=== PATIENT | female | born 1945 | race Caucasian/White ===

== ENCOUNTER 2024-04-20 23:58 | Observation (INO) | payer MEDICARE, BC, SELFPAY ==
[2024-04-20 17:05] VITALS: BP 125/79
[2024-04-20 18:02] VITALS: BP 123/71
[2024-04-20 18:02] LABS: % Basophils 1.3 % (0-2); % Eosinophils 3.4 % (0-6); % Immature Granulocytes 0.3 % (0-0.5); % Lymphocytes 13.2 % (20.5-51.1); % Monocytes 7.2 % (1.7-9.3); % Neutrophils 74.6 % (42.2-75.2); Absolute Basophils 0.1 10^3/uL (0-0.2); Absolute Eosinophils 0.2 10^3/uL (0-0.7); Absolute Lymphocytes 0.8 10^3/uL (1.2-3.4); Absolute Monocytes 0.4 10^3/uL (0.1-0.6); Absolute Neutrophils 4.6 10^3/uL (1.4-6.5); Hemoglobin 11.9 g/dL (12.0-16.0); Mean Corpuscular Hgb 29.4 pg (27.0-31.0); Mean Platelet Volume 9.6 fL (7.4-10.4); Nucleated Red Blood Cells % 0 %; Platelet Count 184 10^3/uL (130-400); Red Blood Cell Count 4.05 10^6/uL (4.20-5.40); Red Cell Dist. Width 17.1 % (11.5-14.5); White Blood Cell Count 6.1 10^3/uL (4.8-10.8)
[2024-04-20 18:23] LABS: ALT (SGPT) < 10 U/L (0-35); AST (SGOT) 26 U/L (14-36); Alkaline Phosphatase 69 U/L (38-126); Blood Urea Nitrogen 26 mg/dl (7-17); Calcium 9.1 mg/dl (8.4-10.2); Carbon Dioxide 25 mmol/L (22-30); Chloride 97 mmol/L (98-107); Glucose 87 mg/dl (70-99); Potassium 4.5 mmol/L (3.5-5.1); Sodium 129 mmol/L (135-145); Total Bilirubin 0.8 mg/dl (0.2-1.3); Total Protein 6.3 g/dl (6.3-8.2); eGFR > 60.00
[2024-04-20 18:26] LABS: Troponin I < 0.012 ng/ml
--- NOTE | 2024-04-20 18:30 | ED.GENMED ---
History of Present Illness
General
Chief Complaint: Chest Pain
Source: patient
Exam Limitations: none
Time Seen by Provider: 04/20/24 17:58
Travel History
Have you had any contact with someone who has COVID-19?: No
Do you have any symptoms of coronavirus? Fever > 100 degrees, chills, cough, shortness of breath, sore throat, loss of taste or smell, muscle aches, or headache?: No
History of Present Illness
History of Present Illness:
This is a 78 year old female that comes in with c/o chest pain. States that she went to the med asst today to get clearance to have her Kidney stent changed. states that she had an ECG at 3:15pm and saw Dr. Edmond. States that she went out
to her car around 4pm and started with chest pain after seeing the med asst. States that the pain was in the center of his chest and on the left. States that it was a 8 and then went down to a 6/10. States that she called the med asst
office and was told to come here. States that she drove herself here. States the pain is dull know but she still feels something there. States that her Pacemaker was checked in the office and she has not had any atrial fib sine January. Denies any
fever, chills, SOB, abd pain, nausea, vomiting, diarrhea, headache, dizziness, urinary burning.
Past History
Past History
ED Past Medical History: Arrthythmia (afib on eliquis), Asthma, GERD, HTN, Hypothyroidism and Other (Back pain, sciatica, TIA, PNA, Sleep apnea, MVP, barretts esophagus, GI bleeding, Hiatal hernia, IBS, )
ED Past Surgical History: Cardiac (Pacemaker placement, Ablation), , Gynecological (hysterectomy), Orthopedic ( L4-L5 fusion and laminectomy, Aakash knee replacement, left shoulder rotator cuff and biceps repair, carpal tunnel, Elbow surgery,
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
Social History
Tobacco: Former smoker
Alcohol: Occasional
Drug: None
Personal:
Living: alone
Employment: Retired
Family History
Family History: Other
Review of Systems
Review of Systems
All Other Systems: ROS reviewed and negative except as documented in HPI and ROS
Constitutional: Reports no symptoms; Denies fever or chills
EENT: Reports no symptoms
Respiratory: Reports no symptoms; Denies cough or trouble breathing
Cardiac: Reports chest pain
ABD/GI: Reports no symptoms; Denies abdominal pain, nausea, vomiting or diarrhea
: Reports no symptoms; Denies dysuria, frequency or urgency
Musculoskeletal: Reports no symptoms
Skin: Reports no symptoms
Neurological: Reports no symptoms; Denies dizzy or headache
Psychiatric: Reports no symptoms
Phy Exam
General Physical Exam
General Presentation: no apparent distress
General age: appears stated age
General Skin: warm and dry
General Habitus: elderly
General Mental: alert
General Hydration: dry mucous membranes
ENT Exam
ENT Exam: TM's normal, pharynx normal and neck supple
Eye Exam
Eye Exam: EOMI
Cardiovascular Exam
Cardiovascular Exam: pacemaker
Pulmonary Exam
Pulmonary Exam: lungs clear, no respiratory distress, no rales, chest non tender, no crackles, no rhonchi, no wheezing and no cough
Gastrointestinal Exam
Gastrointestinal Exam: normal bowel sounds, non tender, soft, no organomegaly, no pulsatile mass and non distended
Musculoskeletal Exam
Musculoskeletal Exam: full ROM and edema (Nonpitting lower legs)
Skin Exam
Skin Exam: normal color, warm/dry, no rash and no petechia
Psychiatric Exam
Psychiatric Exam: normal mood/affect
Scores
Heart Score for Chest Pain Patients
STEMI patient?: No
History: Slightly or Non-Suspicious
ECG: Normal
Age: >/= 65 years
Risk Factors: 1 or 2 Risk Factors
Troponin: </= Normal Limit
Heart Score for Chest Pain Patients: 3
Heart Score Risk: 2.5% MACE over next 6 weeks
Course
Orders/Labs/Results
Orders:
Orders
04/20/24 17:06
EKG [Electrocardiogram (*1)] Stat
Reason for Study: Chest Pain
04/20/24 17:07
EKG- Treatment ONCE
04/20/24 17:58
Complete Blood Count/With Diff Urgent
Comprehensive Metabolic Panel Urgent
Troponin I Urgent
04/20/24 18:29
CR Chest - 2 Views Urgent
Comment:
Reason For Exam: chest pain
04/20/24 18:30
EKG- Treatment ONCE
04/20/24 18:33
Nitroglycerin Sublingual [Nitrostat (Sublingual)] 0.4 mg SL NOW STA
Pantoprazole [Protonix IV] 40 mg IV NOW STA
04/20/24 18:39
0.9% Sodium Chloride 500 ml [Nss] 500 ml IV BOLUS
04/20/24 20:55
Electrocardiogram (*1) Urgent
Reason for Study: Chest Pain
Other Reason for Exam: Repeat with Troponin
04/20/24 21:05
Troponin I Urgent
Abnormal Lab Results
04/20/24
17:58
RBC 4.05 L 10^6/uL
(4.20-5.40)
Hgb 11.9 L g/dL
(12.0-16.0)
Hct 34.0 L %
(37.0-47.0)
RDW 17.1 H %
(11.5-14.5)
Absolute Lymphs (auto) 0.8 L 10^3/uL
(1.2-3.4)
Lymphocytes % 13.2 L %
(20.5-51.1)
Sodium 129 L mmol/L
(135-145)
Chloride 97 L mmol/L
(98-107)
BUN 26 H mg/dl
(7-17)
04/20/24 17:58
04/20/24 17:58
H/H slightly low. hyponatremia (Sodium correction is 129) , Chloride slightly low. Dehydration. Troponin <0.012
second troponin <0.012
Vital Signs
Initial and Last Documented VS:
Initial Vital Signs
Temp Pulse Resp BP Pulse Ox
97.8 F 72 18 125/79 97
04/20/24 17:05 04/20/24 17:05 04/20/24 17:05 04/20/24 17:05 04/20/24 17:05
Last Documented Vital Signs
Temp Pulse Resp BP Pulse Ox
97.8 F 88 18 123/71 98
04/20/24 17:05 04/20/24 18:02 04/20/24 17:05 04/20/24 18:02 04/20/24 18:02
MDM/Problems Addressed
Differential Diagnosis Includes:
coronary syndrome, GERD
MDM/Problems Addressed:
This is a 78 year old female that comes in with c/o chest pain. States that she had seen the med asst, had her pacemaker checked and walked out to her car and stated with chest pain. Patient call the med asst office and was told to come
here. Patient drove herself here.
will check labs. chest x-ray and give Nitro to relieve pain.
Back into see patient. Explained that her both Troponin are normal and her chest X-ray is normal. Patient states that the nitro did take her pain away. Patient blood work also shows that she has hyponatremia. Will admit for further evaluation.
Hospitalist notified.
Chronic conditions affecting care:
cardiac disease
Acute Exacerbation and/or Progression of Chronic Illness:
cardiac disease
*Radiology
Radiology exam reviewed: radiology read reviewed (Chest- No acute cardiopulmonary process)
*Pulse Oximetry
Patient hypoxic: no
*EKG
Interpreted by ED Provider?: Yes
Heart Rate: 75
Rate: normal
Rhythm: av sequential
*Lithographic Retoucher Apprentice Interpretation
Rate: normal
Heart Rate: 70
Rhythm: av sequential
*Critical Care Note
Total Time (30-74mins, 75-104mins- exclusive of procedures): Not Applicable
ED Attending Note
-
Portions of this chart may have been created with voice recognition software.� Occasional wrong word or��sound alike� substitutions may have occurred due to the inherent limitations of voice recognition software.
Discharge Plan
Departure
Patient Disposition: Admit
Date of Disposition: 04/20/24
Time of Disposition: 22:38
Admit to: Telemetry
Presentation/result/management discussed w/ accepting MD/DO: Hospitalist
Patient with high blood pressure during this ER visit?: Yes
Condition: Good
Covid-19: Not Applicable
Discharge Problem:
Chest pain, Acute hyponatremia
Prescriptions:
No Action
atorvastatin 10 mg Tablet
10 mg PO Q48H
diltiazem HCl 240 mg capsule,extended release 24hr
240 mg PO HS
famotidine 40 mg Tablet
40 mg PO HS
gabapentin [Neurontin] 400 mg Capsule
400 mg PO QID
sotalol 120 mg Tablet
120 mg PO BID
acetaminophen [Tylenol Extra Strength] 500 mg Tablet
500 - 1,500 mg PO Q8HPRN PRN (Reason: mild pain)
levothyroxine 88 mcg Tablet
88 mcg PO DAILY
methotrexate sodium 2.5 mg Tablet
15 mg PO WE@1800
carboxymethylcellulose sodium [Refresh Tears] 0.5 % Drops
1 drp BOTH EYES Q1H
desloratadine 5 mg Tablet
5 mg PO DAILY
esomeprazole magnesium 40 mg Capsule,Delayed Release(Dr/Ec)
40 mg PO DAILY
buspirone 10 mg Tablet
10 mg PO BID
losartan 25 mg Tablet
25 mg PO DAILY
folic acid 1 mg Tablet
1 mg PO SUMOTUTHFRSA@0800
montelukast 10 mg Tablet
10 mg PO HS
furosemide 20 mg Tablet
20 mg PO DAILY
colchicine 0.6 mg Tablet
0.6 mg PO HS
fluticasone propionate 50 mcg/actuation [place],Suspension
2 spray INTRANASAL HS
Centrum Silver Tablet
1 tab PO DAILY
Asmanex Twisthaler 220 mcg/ actuation (60) aerosol powdr breath activated
2 inh INHALATION R HS
Systane Nighttime 94-3 % Ointment
1 applic BOTH EYES HS
mirabegron [Myrbetriq] 25 mg tablet extended release 24 hr
25 mg PO QPM
Linzess 72 mcg capsule
72 mcg PO DAILY
Dayvigo 10 mg Tablet
10 mg PO HS
Metamucil
3 gummy PO Q48H@1200
Sleep 3
1 tab PO HS
biotin
1 tab PO .MID-DAY
Referrals:
Roopa Bolanos DO [Family Provider] -
Interventions
Interventions:
*Risk Screen - Suicide Last Done: 04/20/24 18:04
*General Assessment Last Done: 04/20/24 18:12
*Neglect/Abuse Screening Last Done: 04/20/24 18:04
*ED COVID-19 Vaccine History Last Done: 04/20/24 18:04
ED- Cardiac Assessment Last Done: 04/20/24 18:03
Discharge Date and Time
Print Language: VINCENTIAN
[2024-04-20] MEDS: NITROSTAT (SUBLINGUAL) 0.400000000000000022 MG SL (18:45)
[2024-04-20] MEDS: NSS 500 IV (18:46)
[2024-04-20] MEDS: PROTONIX IV 40 MG IV (18:48)
[2024-04-20 21:00] VITALS: BP 161/87
[2024-04-20 21:36] LABS: Troponin I < 0.012 ng/ml
--- NOTE | 2024-04-20 22:54 | W.PN.UPDATE ---
Update Note
Progress Note Update
This serves as an addendum to the H&P dictated by Lizett Velazquez on 04/20/2024.
I saw and examined the patient.
The BANK VAULT CLERK or PA's note was reviewed and I agree with the note.
Comment:
Patient 78 years old female with multiple comorbidities including paroxysmal A-fib, hypertension, hyperlipidemia, hypothyroidism, pacemaker, TIA, PAULETTE, among other,presented to the hospital for chest pain. Patient was at Dr. Milan Edmond's
office and evaluated for preop. For urological procedure and after she left the office she experienced chest pain midsternal, moderate intensity, no radiation, lasted a few minutes per patient but she also tells me that she had it when she came to
the ER and she was given some nitroglycerin and she describes a change to dull ache and it got better. No nausea vomiting diarrhea. No fevers or chills. In the ER, EKG shows paced rhythm at [address]-T changes abnormalities,
Troponin less than 0.012 x 2, and chest x-ray no acute cardiopulmonary process. She was also noticed to have a sodium 129. She does not admit to any new medications and she is eating and drinking normal but if anything maybe more salt intake
lately and she did not drink much today; she does notices that she has had hyponatremia in the past. She was referred to hospitalist service for further evaluation.
Physical exam:
General: Well Developed, Well Nourished and No Apparent Distress
HEENT: Normocephalic, Atraumatic and Moist Mucous Membranes
Respiratory: Clear to Auscultation; Negative Wheezes, Rales or Rhonchi
Cardiac: Regular Rhythm and S1/S2
GI: Soft, Nontender and Nondistended
Musculoskeletal: No Clubbing, No Cyanosis and No Edema
Neuro: Awake, Alert and Oriented
Psych: Calm
A/P:
Chest pain/hyponatremia--> cardiac monitoring, trend cardiac enzymes, cardiology consult. As far as hyponatremia, proceed for hyponatremia workup including serum osmolarity, urine osmolarity, urine sodium, TSH. For now fluid restriction and
reevaluate strategy depending on rest of the workup.
--- NOTE | 2024-04-20 23:06 | HPS.HSE ---
Family Physician
-
Family Physician: Roopa Bolanos
Chief Complaint
-
Chest pain
History of Present Illness
78-year-old female complaining of chest pain. She reports she saw her stock holder today Dr. Edmond for preop clearance for kidney stent replacement. She reports seeing the physician around 3:15 PM. After leaving the the office she had
midsternal chest pain rating to left side 6 out of 10 at 4 PM. She called the stock holder who told her to come to the ER for evaluation. She had pacemaker interrogation in the office with no A-fib since January. She reports her chest pain was 8
out of 10 in the ER which was relieved after 1 nitroglycerin. She denies fever, chills, shortness of breath, abdominal pain, nausea, vomiting, diarrhea, headache, urinary symptoms. His past medical history of A-fib on Eliquis, cardiac ablation,
pacemaker placement-SSS, TIA 2016, MRSA, asthma, GERD, HTN, HLD, hypothyroidism, chronic back pain, sciatica, RA, sleep apnea/CPAP, MVP, Beck's esophagus, GI bleed, hiatal hernia, IBS, former smoker, insomnia, seasonal allergies, insomnia
Medical History
Past Medical History
Past Medical History: Reports Other
Additional Past Medical History:
A-fib on Eliquis/ cardiac ablation
pacemaker placement-SSS
MVP,
2016
HTN
RA
HLD
hpothyroidism,
MRSA
asthma
GERD
Beck's esophagus
GI bleed
hiatal hernia
IBS
chronic back pain/ sciatica
sleep apnea/CPAP
former smoker
insomnia
seasonal allergies
Past Surgical History: Reports Other
Additional Past Surgical History:
Cardiac ablation
Permanent pacemaker
section
Hysterectomy
L4-L5 fusion and laminectomy
Bilateral knee replacement
Left shoulder rotator cuff and bicep repair
Carpal tunnel repair
Elbow surgery
Tonsillectomy
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
Hernia repair
Cataract extraction
Social History
Tobacco: Non-smoker
Alcohol: None
Drug: None
Personal: (November 2023)
Living: Alone
Employment: Retired
Family History
Family History: Other (Mother malignant melanoma, history multiple CVAs age 84, father 94 and sleep history of hypertension)
Allergies / Home Medications
Allergies reflects when Allergies were last updated in [facility].
Home Medications with original date entered in [facility]
Allergy/Medication List:
Allergies
Allergy/AdvReac Type Severity Reaction Status Date / Time
adhesive tape [Adhesive Tape] Allergy SKIN TEARS Verified 04/20/24 17:09
bee venom protein (honey bee) Allergy Unknown Verified 04/20/24 17:09
mold Allergy Unknown Verified 04/20/24 17:09
NSAIDS (Non-Steroidal Allergy GI BLEED Verified 04/20/24 17:09
Anti-Inflamma
tramadol Allergy GI BLEED Verified 04/20/24 17:09
Home Medications
Metamucil 3 gummy PO Q48H@1200 04/20/24
Sleep 3 1 tab PO HS 04/20/24
acetaminophen 500 mg tablet (Tylenol Extra Strength) 500 - 1,500 mg PO Q8HPRN PRN mild pain 04/20/24
atorvastatin 10 mg tablet 10 mg PO Q48H 04/20/24
biotin 1 tab PO .MID-DAY 04/20/24
buspirone 10 mg tablet 10 mg PO BID 04/20/24
carboxymethylcellulose sodium 0.5 % eye drops (Refresh Tears) 1 drp BOTH EYES Q1H 04/20/24
colchicine 0.6 mg tablet 0.6 mg PO HS 04/20/24
desloratadine 5 mg tablet 5 mg PO DAILY 04/20/24
diltiazem HCl 240 mg capsule,extended release 24 hr 240 mg PO HS 04/20/24
esomeprazole magnesium 40 mg capsule,delayed release 40 mg PO DAILY 04/20/24
famotidine 40 mg tablet 40 mg PO HS 04/20/24
fluticasone propionate 50 mcg/actuation nasal spray,suspension 2 spray intranasal HS 04/20/24
folic acid 1 mg tablet 1 mg PO SUMOTUTHFRSA@0800 04/20/24
furosemide 20 mg tablet 20 mg PO DAILY 04/20/24
gabapentin 400 mg capsule (Neurontin) 400 mg PO QID 04/20/24
lemborexant 10 mg tablet (Dayvigo) 10 mg PO HS 04/20/24
levothyroxine 88 mcg tablet 88 mcg PO DAILY 04/20/24
linaclotide 72 mcg capsule (Linzess) 72 mcg PO DAILY 04/20/24
losartan 25 mg tablet 25 mg PO DAILY 04/20/24
methotrexate sodium 2.5 mg tablet 15 mg PO WE@1800 04/20/24
mirabegron 25 mg tablet,extended release 24 hr (Myrbetriq) 25 mg PO QPM 04/20/24
mometasone 220 mcg/actuation(60 doses) breath activated powder inhaler (Asmanex Twisthaler) 2 inh inhalation R HS 04/20/24
montelukast 10 mg tablet 10 mg PO HS 04/20/24
qwcncgqiwmio-rpehehcc-geltfv tablet 1 tab PO DAILY 04/20/24
sotalol 120 mg tablet 120 mg PO BID 04/20/24
white petrolatum-mineral oil 94 %-3 % eye ointment (Systane Nighttime) 1 applic BOTH EYES HS 04/20/24
Review of Systems
-
History Source: Patient
A 12 point ROS was completed and negative except as noted: Yes
Constitutional: Denies Fever or Fatigue
EENT: Denies Tearing, Sore Throat or Runny Nose
Respiratory: Denies Cough, Hemoptysis or Trouble Breathing
Cardiac: Reports Chest Pain (Midsternal); Denies Diaphoresis, Palpitations or Syncope
Abdomen/GI: Denies Abdominal Pain, Nausea, Vomiting, Diarrhea or Constipated
: Denies Dysuria, Frequency, Flank Pain, Incontinence, Difficulty Voiding or Urgency
Musculoskeletal: Reports Edema (Chronic leg lymphedema patient with lymphedema impression stockings in place); Denies Joint Pain
Skin: Denies Itching or Rash
Neurological: Denies Dizzy, Headache or Weakness
Endocrine: Reports No Symptoms
Hematologic/Lymphatic: Reports No Symptoms
Psych: Reports Calm
Physical Exam
Vital Signs
Vital Signs
Temp Pulse Resp BP Pulse Ox
97.8 F 88 18 123/71 98
04/20/24 17:05 04/20/24 18:02 04/20/24 17:05 04/20/24 18:02 04/20/24 18:02
Physical Exam
General: Comfortable and Conversant; No Pain, Fever or Chills
HEENT: NormoCephalic, Anicteric, Moist mucous membranes, PERRLA, [place] Conjunctivae and No Ptosis
Respiratory: Clear; No Wheezes, Rales or Rhonchi
Cardiac: S1/S2, Regular Rhythm and Peripheral Edema (Chronic leg lymphedema patient with lymphedema impression stockings in place); No Murmur, Rub or Gallop
Breast: Deferred by me
GI: Soft, Non Tender, Non Distended, Normal Bowel Sounds and No Hepatosplenomegaly
Rectal: Deferred by Provider
Genito-urinary: Deferred by me
Musculoskeletal: No Clubbing, No Cyanosis, Edema, Left Lower Extremity (Chronic leg lymphedema patient with lymphedema impression stockings in place) and Edema, Right Lower Extremity (Chronic leg lymphedema patient with lymphedema impression
stockings in place); No Edema, Left Upper Extremity or Edema, Right Upper Extremity
Skin: Warm and Dry; No Rash
Neuro: AO x 3, No Motor Deficits, Nonfocal/grossly intact, Cranial Nerves Intact and No Sensory Deficits; No Slurred Speech, Facial Droop or Tremors
Psych: Calm
Laboratory Results
-
04/20/24 17:58
04/20/24 17:58
Laboratory Results
Total Bilirubin 0.8 mg/dl (0.2-1.3) 04/20/24 17:58
AST 26 U/L (14-36) 04/20/24 17:58
ALT < 10 U/L (0-35) 04/20/24 17:58
Alkaline Phosphatase 69 U/L (38-126) 04/20/24 17:58
Troponin I < 0.012 ng/ml 04/20/24 21:05
Impression/Plan
-
Impression/plan:
Observation telemetry
#Chest pain unclear
Troponin<0.012 will trend
-Follow EKG
-Consult [facility] cardiology
-Check TSH and free T4 reflex
-As needed nitro sublingual chest pain
CXR: No acute cardiopulmonary process
EKG: Dual paced rhythm prolonged AV conduction HR 75 bpm, QTc 540 MS
#Hyponatremia
NA 129
Check TSH with free T4 reflex urine Osmo urine sodium, serum Osmo
fluid restrict 50 oz
#Rheumatoid arthritis Dx November 2023
Patient on methotrexate 15 mg Wednesdays
#Paroxysmal A-fib
Cardiac pacemaker-�SSS 9 years old is doing 15 months for battery change
Continue diltiazem 240 mg at bedtime, sotalol 120 mg twice daily
#HTN�benign
-Continue losartan 25 mg daily
#HLD
-Continue atorvastatin 10 mg every 48 H
#Hypothyroidism
TSH with T4 reflex
-Continue levothyroxine 88 mcg daily
#Asthma
Continue montelukast 10 mg at bedtime, Asmanex inhaler
#GERD/Beck's esophagus
#IBS
-Continue Linzess 72 mcg daily, continue Pepcid 40 mg at bedtime, Nexium 40 mg daily
#Chronic back pain
#Hx L4 L5 fusion laminectomy
-Continue Neurontin 4 mg p.o. 4 times daily
#Overactive bladder
-Continue Myrbetriq 25 mg every afternoon
#PAULETTE on CPAP
#TIA Hx September 2017
-Continue aspirin, statin, BP control
#History MRSA
#Seasonal allergies
-Continue desloratadine, singular 10 mg at bedtime
#Chronic leg lymphedema
Wears lymphedema boots
DVT prophylaxis
SCDs
DNR per patient
[2024-04-20 23:15] VITALS: BP 132/90
[2024-04-21] VITALS (9 sets, daily range): BP systolic 113–153; BP diastolic 53–82; PULSE 70–84; BMI 38.2
[2024-04-21] MEDS: TYLENOL 650 MG PO (01:45)
[2024-04-21] MEDS: CARDIZEM CD 240 MG PO ×2 (01:54→21:57)
[2024-04-21] MEDS: NEURONTIN 400 MG PO ×5 (01:54→21:58)
[2024-04-21] MEDS: BETAPACE 120 MG PO ×3 (01:55→20:56)
[2024-04-21] MEDS: SYNTHROID 88 MCG PO (06:10)
[2024-04-21 06:58] LABS: % Basophils 1.5 % (0-2); % Eosinophils 4.3 % (0-6); % Immature Granulocytes 0.3 % (0-0.5); % Lymphocytes 19.2 % (20.5-51.1); % Monocytes 9.8 % (1.7-9.3); % Neutrophils 64.9 % (42.2-75.2); Absolute Basophils 0.1 10^3/uL (0-0.2); Absolute Eosinophils 0.2 10^3/uL (0-0.7); Absolute Lymphocytes 0.8 10^3/uL (1.2-3.4); Absolute Monocytes 0.4 10^3/uL (0.1-0.6); Absolute Neutrophils 2.6 10^3/uL (1.4-6.5); Hematocrit 33.4 % (37.0-47.0); Hemoglobin 11.5 g/dL (12.0-16.0); Mean Corp Hgb Conc. 34.4 g/dL (33.0-37.0); Mean Corpuscular Hgb 29.2 pg (27.0-31.0); Mean Corpuscular Volume 84.8 fL (81.0-99.0); Mean Platelet Volume 9.6 fL (7.4-10.4); Nucleated Red Blood Cells % 0 %; Platelet Count 178 10^3/uL (130-400); Red Blood Cell Count 3.94 10^6/uL (4.20-5.40); Red Cell Dist. Width 17.2 % (11.5-14.5)
[2024-04-21 07:18] LABS: Blood Urea Nitrogen 22 mg/dl (7-17); Carbon Dioxide 24 mmol/L (22-30); Chloride 98 mmol/L (98-107); Estimated Creatinine Clearance 97 ml/min; Glucose 93 mg/dl (70-99); HDL Cholesterol 51 mg/dl; LDL Cholesterol, Calculated 51 mg/dl; Potassium 4.1 mmol/L (3.5-5.1); Sodium 131 mmol/L (135-145); Total Cholesterol 124 mg/dl (50-199); Triglyceride 112 mg/dl (10-149); Troponin I < 0.012 ng/ml; Very Low Density Lipoprotein 22 mg/dl (0-30); eGFR > 60.00
[2024-04-21 07:39] LABS: Urine Sodium 66 mmol/L (30-90)
[2024-04-21 07:48] LABS: TSH Reflex To Free T4 1.47 uIU/ml (0.47-4.68)
--- NOTE | 2024-04-21 08:39 | CON.CAR ---
Addendum entered and electronically signed by Hortensia Quarles DO 04/21/24 20:19:
I saw and examined the patient.
The Firer Watertender's note was reviewed and I agree with the note.
Comment: Patient seen and examined with cardiac PA. 78 year old female with past medical history of paroxysmal atrial fibrillation, permanent pacemaker, nonobstructive CAD, chronic HFpEF, PAULETTE, hypothyroidism, asthma, hypertension, hyperlipidemia,
moderate MR, moderate AI, and prior TIA. She presented to ER for evaluation after being seen in the cardiology office for preop clearance 04/20/2024. She states she has been in her normal state of health and has had no complaints, however when
she got into the parking lot to leave after her appointment, she suddenly developed 8 out of 10 substernal chest pain. She denies history of symptoms like this. Pain continued until she was seen in the emergency room. She was given a
nitroglycerin and her pain resolved. She was admitted for further workup and evaluation. Her troponins have been undetectable x 3. She is pain-free overnight, however but did note some mild pain this AM that resolved after only a few moments.
She feels well currently and has no complaints.
General: No acute distress, AAOX3
Neck: Negative JVD
Heart: Regular, positive S1/S2, 2/6 SM. + Pacer
Lungs: Bronchovesicular breath sounds, clear
Abd: Positive BS, NT/ND, neg rebound/rigidity/guarding
Ext: No edema
Neuro: nonfocal
Plan:
Atypical chest pain
-Symptoms relieved with 1 sublingual nitroglycerin without recurrence
-Negative cardiac troponins x 3
-2D echocardiogram shows normal LV size and systolic function with no new regional wall motion abnormalities.
-She has a history of nonobstructive CAD by cath in 2010 but has multiple risk factors for coronary artery disease and no recent ischemic evaluation.
-I have asked nursing to walk her in unit with her walker and with assistance given gait dysfunction. If no further chest pain or pressure plan will be for outpatient ischemic evaluation which will be arranged next week.
-Continue aspirin 81 mg daily
-Continue statin; LDL is at goal 51 mg/dL
Blood pressures are stable; no changes made
Patient has a history of PAF maintained on chronic sotalol therapy. She is AV paced with no arrhythmia noted on telemetry. She is maintained on aspirin therapy; deemed high risk for anticoagulation given falls. Could consider outpatient
evaluation for Watchman which was briefly discussed.
Obstructive sleep apnea compliant with CPAP
Outpatient cardiac follow up and testing to be arranged.
Original Note:
Consultation
Consultation Request
Date/Time Consultation Requested: 04/21/2024
Date/Time Consultation Performed: 04/21/2024
Requesting Provider: Dr. Langston
Performing Provider: Dr. Quarles
Reason for Consultation: Chest pain
Medical History
-
History of Present Illness:
HPI: Alondra is a 78 year old female with past medical history of paroxysmal atrial fibrillation, permanent pacemaker, nonobstructive CAD, chronic HFpEF, PAULETTE, hypothyroidism, asthma, hypertension, hyperlipidemia, moderate MR, moderate AI, and
prior TIA. She presented to ER for evaluation after being seen in the cardiology office for preop clearance 04/20/2024. She states she has been in her normal state of health and has had no complaints, however when she got into the parking lot to
leave after her appointment, she suddenly developed 8 out of 10 substernal chest pain. She denies history of symptoms like this. Pain continued until she was seen in the emergency room. She was given a nitroglycerin and her pain resolved. She
was admitted for further workup and evaluation. Her troponins have been undetectable x 3. She is pain-free overnight, however but did note some mild pain this AM that resolved after only a few moments. She feels well currently and has no
complaints.
PMH:
Paroxysmal atrial fibrillation
s/p PVI 02/09/2018
chronic sotalol therapy
Not anticoagulated due to fall risk
SSS s/p DC PPM 06/24/2016
CAD
Nonobstructive CAD w/ mild coronary ectasia by cath 03/19/2011
Chronic HFpEF
PAULETTE on CPAP
Hypothyroidism
Asthma
HTN
HLD
Mod MR
Mod AI
h/o TIA 2016
Past Medical History
Past Medical History: Other (In HPI)
Past Surgical History: Cardiac (PPI 02/09/2018, PPM 06/24/2016), Tonsilectomy and Other (Oral surgery, b/l TKA, rotator cuff repair, section x 2, hernia repair, laminectomy, spinal nerve ablation, b/l cataract surgery, renal stent 12/03/2022)
Social History
Tobacco: Former Smoker
Alcohol: Occasional
Drug: None
Personal:
Living: Alone
Employment: Retired
Family History
Family History: Reviewed & Not Pertinent
Allergies / Home Medications
Allergy/AdvReac Type Severity Reaction Status Date / Time
adhesive tape [Adhesive Tape] Allergy SKIN TEARS Verified 04/20/24 17:09
bee venom protein (honey bee) Allergy Unknown Verified 04/20/24 17:09
mold Allergy Unknown Verified 04/20/24 17:09
NSAIDS (Non-Steroidal Allergy GI BLEED Verified 04/20/24 17:09
Anti-Inflamma
tramadol Allergy GI BLEED Verified 04/20/24 17:09
�Medication �Instructions �Recorded �Confirmed �Type
Metamucil 3 gummy PO Q48H@1200 04/20/24 04/20/24 History
Sleep 3 1 tab PO HS 04/20/24 04/20/24 History
acetaminophen 500 mg tablet 500 - 1,500 mg PO Q8HPRN PRN mild 04/20/24 04/20/24 History
(Tylenol Extra Strength) pain
atorvastatin 10 mg tablet 10 mg PO Q48H High Cholesterol 04/20/24 04/20/24 History
biotin 1 tab PO .MID-DAY 04/20/24 04/20/24 History
buspirone 10 mg tablet 10 mg PO BID Mental Health/Anxiety 04/20/24 04/20/24 History
carboxymethylcellulose sodium 0.5 1 drp BOTH EYES Q1H Eye Condition 04/20/24 04/20/24 History
% eye drops (Refresh Tears)
colchicine 0.6 mg tablet 0.6 mg PO HS Gout 04/20/24 04/20/24 History
desloratadine 5 mg tablet 5 mg PO DAILY Allergies 04/20/24 04/20/24 History
diltiazem HCl 240 mg 240 mg PO HS Heart 04/20/24 04/20/24 History
capsule,extended release 24 hr Disease/Condition
esomeprazole magnesium 40 mg 40 mg PO DAILY Gastrointestinal 04/20/24 04/20/24 History
capsule,delayed release Issue
famotidine 40 mg tablet 40 mg PO HS Gastrointestinal Issue 04/20/24 04/20/24 History
fluticasone propionate 50 2 spray intranasal HS Allergies 04/20/24 04/20/24 History
mcg/actuation nasal
spray,suspension
folic acid 1 mg tablet 1 mg PO SUMOTUTHFRSA@0800 04/20/24 04/20/24 History
Supplement
furosemide 20 mg tablet 20 mg PO DAILY Fluid 04/20/24 04/20/24 History
Retention/Swelling
gabapentin 400 mg capsule 400 mg PO QID Neurological 04/20/24 04/20/24 History
(Neurontin) Condition
lemborexant 10 mg tablet (Dayvigo) 10 mg PO HS Sleep 04/20/24 04/20/24 History
levothyroxine 88 mcg tablet 88 mcg PO DAILY Thyroid 04/20/24 04/20/24 History
linaclotide 72 mcg capsule 72 mcg PO DAILY Constipation 04/20/24 04/20/24 History
(Linzess)
losartan 25 mg tablet 25 mg PO DAILY Blood Pressure 04/20/24 04/20/24 History
methotrexate sodium 2.5 mg tablet 15 mg PO WE@1800 Rheumatoid 04/20/24 04/20/24 History
Arthritis
mirabegron 25 mg tablet,extended 25 mg PO QPM Overactive bladder 04/20/24 04/20/24 History
release 24 hr (Myrbetriq)
mometasone 220 mcg/actuation(60 2 inh inhalation R HS Allergies 04/20/24 04/20/24 History
doses) breath activated powder
inhaler (Asmanex Twisthaler)
montelukast 10 mg tablet 10 mg PO HS asthma 04/20/24 04/20/24 History
lalebuqddlmo-vminxdem-mshacw tablet 1 tab PO DAILY Supplement 04/20/24 04/20/24 History
sotalol 120 mg tablet 120 mg PO BID Heart 04/20/24 04/20/24 History
Disease/Condition
white petrolatum-mineral oil 94 1 applic BOTH EYES HS Eye Condition 04/20/24 04/20/24 History
%-3 % eye ointment (Systane
Nighttime)
Review of Systems
-
History Source: Patient
All other systems: Negative unless noted
Physical Exam
Vital Signs
Temp Pulse Resp BP Pulse Ox
97.7 F 72 16 127/70 97
04/21/24 07:28 04/21/24 08:03 04/21/24 08:03 04/21/24 07:28 04/21/24 08:03
Lab Results
04/21/24 06:39
04/21/24 06:39
Troponin I Cancelled 04/21/24 15:00
Physical Exam
General: Well Developed, Well Nourished and No Apparent Distress
HEENT: Normocephalic, Anicteric and Moist Mucous Membranes
Respiratory: Clear and Non Labored Respirations
Cardiac: S1/S2, Regular Rhythm and Murmur
Musculoskeletal: No Clubbing, No Cyanosis and No Edema
Skin: Warm and Dry
Neuro: AO x 3 and Nonfocal/Grossly Intact
Psych: Calm
Impression / Plan
-
PCP: Dr. Bolanos
Cardiology: Dr. Bryant Edmond
Impression:
Paroxysmal atrial fibrillation
s/p PVI 02/09/2018
chronic sotalol therapy
Not anticoagulated due to fall risk
SSS s/p DC PPM 06/24/2016
CAD
Nonobstructive CAD w/ mild coronary ectasia by cath 03/19/2011
Chronic HFpEF
PAULETTE on CPAP
Hypothyroidism
Asthma
HTN
HLD
Mod MR
Mod AI
h/o TIA 2016
LHC 03/19/2011: Nonobstructive coronary disease. Mild coronary ectasia.
Echo 10/30/2022: EF 68%, moderate MR, moderate AI, mild TR
Echo 04/21/2024: Study pending
Plan:
-Presented with chest pain after leaving cardiology office 04/20/2024. He was referred to the emergency room.
-Pain was substernally located and rated 8/10 in severity. Resolved in ER after 1 sublingual nitroglycerin.
-Troponins negative x 3. Pain-free this morning.
-Will check echocardiogram. Prior echo in 2021 with preserved EF and moderate valvular disease.
-She has history of nonobstructive CAD by cath in 2010. Not on anticoagulation as outpatient due to fall risk.
-Continue aspirin 81 mg daily which she is on as an outpatient.
-Continue Lipitor 10 mg every other day. LDL 51.
-She appears euvolemic. Continue on Lasix 20 mg p.o. daily.
-Blood pressure stable on Cardizem and losartan.
-She has history of paroxysmal atrial fibrillation and is maintained on chronic sotalol therapy. EKG reviewed, AV paced.
-Patient is planned for upcoming renal stent exchange 05/25/2024.
-Given episode of chest pain, would recommend outpatient stress testing prior to planned surgical procedure. Our office will arrange.
HPI: Alondra is a 78 year old female with past medical history of paroxysmal atrial fibrillation, permanent pacemaker, nonobstructive CAD, chronic HFpEF, PAULETTE, hypothyroidism, asthma, hypertension, hyperlipidemia, moderate MR, moderate AI, and
prior TIA. She presented to ER for evaluation after being seen in the cardiology office for preop clearance 04/20/2024. She states she has been in her normal state of health and has had no complaints, however when she got into the parking lot to
leave after her appointment, she suddenly developed 8 out of 10 substernal chest pain. She denies history of symptoms like this. Pain continued until she was seen in the emergency room. She was given a nitroglycerin and her pain resolved. She
was admitted for further workup and evaluation. Her troponins have been undetectable x 3. She is pain-free overnight, however but did note some mild pain this AM that resolved after only a few moments. She feels well currently and has no
complaints.
Data Reviewed
-
EKG: Tracing Personally Visualized and interpreted
Radiology: Report Reviewed by me
Labs: Labs Reviewed by me
Old Records: Reviewed
[2024-04-21 08:57] LABS: Osmolality Urine 332 mOsm/kg (300-900)
[2024-04-21 09:04] LABS: Osmolality Serum 279 mOsm/kg (275-300)
[2024-04-21] MEDS: LINZESS 72 MCG PO (09:08)
[2024-04-21] MEDS: THERAGRAN 1 TABLET PO (09:08)
[2024-04-21] MEDS: FOLVITE 1 MG PO (09:08)
[2024-04-21] MEDS: PROTONIX 40 MG PO (09:08)
[2024-04-21] MEDS: COZAAR 25 MG PO (09:08)
[2024-04-21] MEDS: CLARITIN 10 MG PO (09:08)
[2024-04-21] MEDS: LASIX 20 MG PO (09:09)
[2024-04-21] MEDS: BUSPAR 10 MG PO ×2 (09:09→20:57)
--- NOTE | 2024-04-21 10:47 | W.PN.HOSP.TC ---
Today's Communication/Plan
-
see A/P
Assessment / Plan
Assessment / Plan
HPI: 78-year-old female PMH A-fib on Eliquis, cardiac ablation, SSS s/p pacemaker placement, TIA 2017, MRSA, asthma, GERD, HTN, HLD, hypothyroidism, chronic back pain, sciatica, RA, sleep apnea/CPAP, MVP, Beck's esophagus, GI bleed, hiatal
hernia, IBS; p/w chest pain.
She saw her master planner Dr. Milan Edmond for preop clearance for kidney stent replacement, and after the visit at the [facility], she started to experience midsternal chest pain with radiation to the left side of the arm. She was asked by
her master planner to come to the ED.
She had pacemaker interrogation in the office with no A-fib since January.
Her CP was relieved after nitroglycerin.
CXR: No acute cardiopulmonary process
A/P:
# Chest pain, eval for ACS
Troponin negative x3
EKG noted paced rhythm
check echo
Cardiology on board
Cont PRN nitro for chest pain
# Chronic Hyponatremia due to SIADH
noted serum Osm and urine Osm
Na 131 today, cont to monitor
TSH WNL at 1.47
Cont fluid restrict 50 oz
# Rheumatoid arthritis
# Chronic ambulatory dysfunction
Patient on methotrexate 15 mg Wednesdays
She uses a walker to ambulate at baseline
Pt would like PT eval prior to discharge
# Paroxysmal A-fib
# SSS s/p pacemaker
Continue diltiazem 240 mg at bedtime, sotalol 120 mg twice daily
# HTN�benign
Continue losartan 25 mg daily
Cardizem and Sotalol as above
# HLD
Continue atorvastatin 10 mg every 48 H
# Hypothyroidism
TSH WNL at 1.47
Continue levothyroxine 88 mcg daily
# Asthma, mild intermittent
Continue montelukast 10 mg at bedtime, Asmanex inhaler
# GERD/Beck's esophagus
# IBS
Continue Linzess 72 mcg daily, Pepcid 40 mg at bedtime, Nexium 40 mg daily
# Chronic back pain
# Hx L4 L5 fusion laminectomy
Continue Neurontin 4 mg p.o. 4 times daily
# Overactive bladder
Continue Myrbetriq 25 mg every afternoon
# PAULETTE on CPAP
# TIA Hx September 2017
Continue aspirin, statin, BP control
# History MRSA
# Seasonal allergies
Continue desloratadine, singular 10 mg at bedtime
# Chronic leg lymphedema
Wears lymphedema boots
DVT prophylaxis: SCDs
DNR per patient
Anticipated Discharge: 24 - 48 hours
Subjective/Interval History
-
Date of Service: April 21, 2024
Objective Data
-
Labs:
Laboratory Results
04/21/24
06:39
WBC 4.0 L
Hgb 11.5 L
Hct 33.4 L
Plt Count 178
Sodium 131 L
Potassium 4.1
Chloride 98
Carbon Dioxide 24
BUN 22 H
Creatinine 0.6
Glucose 93
Calcium 9.0
Vital Signs:
Vital Signs
Temp Pulse Resp BP Pulse Ox
36.5 C 72 16 127/70 97
04/21/24 07:28 04/21/24 09:09 04/21/24 08:03 04/21/24 09:09 04/21/24 08:03
I&O
04/20/24 04/21/24 04/22/24
06:59 06:59 06:59
Intake Total 240 / 240
Output Total 500 / 500
Balance -260 / -260
Review of Systems
-
Cardiac: Reports Chest Pain (now localized at left chest wall)
Physical Exam
-
General: Well Developed, Well Nourished, No Apparent Distress, Comfortable and Conversant; Negative Respiratory Distress
HEENT: Normocephalic, Atraumatic, Nose Appears Normal and Ears Appear Normal; Negative Oxygen
Respiratory: Clear to Auscultation and Non Labored Respirations; Negative Accessory Resp Muscle Use
Cardiac: Regular Rhythm and S1/S2
GI: Soft, Nontender, Nondistended and Normal Bowel Sounds
Skin: Warm and Dry
Neuro: Awake, Alert, Oriented and AO x 3
Psych: Calm and Intact Judgement/Insight
Data Reviewed
-
Diagnostic Radiology: Image personally visualized and interpreted and Report Reviewed by me
Labs: Labs Reviewed by me
[2024-04-21] MEDS: LOW STRENGTH ASPIRIN 81 MG PO (11:42)
--- NOTE | 2024-04-21 12:01 | CM ---
met with patient at bedside.patient lives in [facility] at [facility],she has 4 steps to enter,her bed and bath is on first level,she ambulates with a cane or walker and has an electric wc.she is I with her adl.she has a walk
in shower with shower chair.dr elvin aguero is her pcp and she uses [facility] in [place].patient has never had a vn but has been to [facility].
patient with past hx of sss/ppm,afib on eliquis,ra,asthma,cardiac ablation is adm with chest pain.for echo today,pt to eval tomorrow.patient signed vasques letter.patient will dc home with home pt vs no needs.family to transport home.
[2024-04-21] MEDS: LIPITOR 10 MG PO (18:04)
[2024-04-21] MEDS: MYRBETRIQ EXTENDED RELEASE 25 MG PO (18:04)
[2024-04-21] MEDS: PEPCID 40 MG PO (21:57)
[2024-04-21] MEDS: MELATONIN 5 MG PO (21:57)
[2024-04-21] MEDS: SINGULAIR 10 MG PO (21:57)
[2024-04-21] MEDS: COLCHICINE 0.599999999999999978 MG PO (21:58)
[2024-04-21] MEDS: OCEAN, SALINE MIST 1 SPRAYS NASAL (21:59)
[2024-04-22] MEDS: REFRESH EYE DROPS (PF) 1 DROPS BOTH EYES (02:16)
[2024-04-22 03:17] VITALS: PULSE 74
[2024-04-22 03:24] VITALS: BP 124/59
[2024-04-22 06:00] VITALS: BMI 37.1
[2024-04-22] MEDS: SYNTHROID 88 MCG PO (06:12)
[2024-04-22 07:25] VITALS: BP 148/85
[2024-04-22 07:27] LABS: Hematocrit 35.8 % (37.0-47.0); Hemoglobin 12.3 g/dL (12.0-16.0); Mean Corp Hgb Conc. 34.4 g/dL (33.0-37.0); Mean Corpuscular Hgb 29.1 pg (27.0-31.0); Mean Corpuscular Volume 84.6 fL (81.0-99.0); Platelet Count 176 10^3/uL (130-400); Red Blood Cell Count 4.23 10^6/uL (4.20-5.40); Red Cell Dist. Width 17.1 % (11.5-14.5); White Blood Cell Count 3.5 10^3/uL (4.8-10.8)
[2024-04-22 07:57] LABS: Blood Urea Nitrogen 23 mg/dl (7-17); Calcium 9.4 mg/dl (8.4-10.2); Carbon Dioxide 27 mmol/L (22-30); Chloride 99 mmol/L (98-107); Estimated Creatinine Clearance 82 ml/min; Glucose 90 mg/dl (70-99); Magnesium 2.1 mg/dl (1.6-2.3); Sodium 133 mmol/L (135-145); eGFR > 60.00
[2024-04-22] MEDS: THERAGRAN 1 TABLET PO (08:41)
[2024-04-22] MEDS: LOW STRENGTH ASPIRIN 81 MG PO (08:41)
[2024-04-22] MEDS: BETAPACE 120 MG PO (08:42)
[2024-04-22] MEDS: COZAAR 25 MG PO (08:42)
[2024-04-22] MEDS: FOLVITE 1 MG PO (08:42)
[2024-04-22] MEDS: BUSPAR 10 MG PO (08:42)
[2024-04-22] MEDS: LASIX 20 MG PO (08:42)
[2024-04-22] MEDS: PROTONIX 40 MG PO (08:42)
[2024-04-22] MEDS: CLARITIN 10 MG PO (08:42)
[2024-04-22] MEDS: NEURONTIN 400 MG PO ×2 (08:45→12:13)
[2024-04-22] MEDS: LINZESS 72 MCG PO (08:56)
--- NOTE | 2024-04-22 09:59 | W.PN.HOSP.TC ---
Addendum entered and electronically signed by Viola Mclean MD 04/22/24 13:27:
total DC time 35 min
Original Note:
Today's Communication/Plan
-
see A/P
Assessment / Plan
Assessment / Plan
HPI: 78-year-old female PMH A-fib on Eliquis, cardiac ablation, SSS s/p pacemaker placement, TIA 2017, MRSA, asthma, GERD, HTN, HLD, hypothyroidism, chronic back pain, sciatica, RA, sleep apnea/CPAP, MVP, Beck's esophagus, GI bleed, hiatal
hernia, IBS; p/w chest pain.
She saw her lottery manager Dr. Milan Edmond for preop clearance for kidney stent replacement, and after the visit at the parking [facility], she started to experience midsternal chest pain with radiation to the left side of the arm. She was asked by
her lottery manager to come to the ED.
She had pacemaker interrogation in the office with no A-fib since January.
Her CP was relieved after nitroglycerin.
CXR: No acute cardiopulmonary process
A/P:
# Chest pain, eval for ACS
Troponin negative x3
EKG noted paced rhythm
Echo unrevealing: EF 56%. Stage II diastolic dysfunction. Compared to prior study dated 10/30/2022, LV ejection fraction remains preserved. Mitral regurgitation has improved, previously moderate. Aortic regurgitation unchanged.
Cardiology on board, recc outpt follow up
Cont PRN nitro for chest pain
# Chronic Hyponatremia due to SIADH
noted serum Osm and urine Osm
Na 133 today, cont to monitor
TSH WNL at 1.47
Cont fluid restrict 50 oz
# Rheumatoid arthritis
# Chronic ambulatory dysfunction
Patient on methotrexate 15 mg Wednesdays
She uses a walker to ambulate at baseline
# Paroxysmal A-fib
# SSS s/p pacemaker
Continue diltiazem 240 mg at bedtime, sotalol 120 mg twice daily
# HTN�benign
Continue losartan 25 mg daily
Cardizem and Sotalol as above
# HLD
Continue atorvastatin 10 mg every 48 H
# Hypothyroidism
TSH WNL at 1.47
Continue levothyroxine 88 mcg daily
# Asthma, mild intermittent
Continue montelukast 10 mg at bedtime, Asmanex inhaler
# GERD/Beck's esophagus
# IBS
Continue Linzess 72 mcg daily, Pepcid 40 mg at bedtime, Nexium 40 mg daily
# Chronic back pain
# Hx L4 L5 fusion laminectomy
Continue Neurontin 4 mg p.o. 4 times daily
# Overactive bladder
Continue Myrbetriq 25 mg every afternoon
# PAULETTE on CPAP
# TIA Hx September 2017
Continue aspirin, statin, BP control
# History MRSA
# Seasonal allergies
Continue desloratadine, singular 10 mg at bedtime
# Chronic leg lymphedema
Wears lymphedema boots
DVT prophylaxis: SCDs
DNR per patient
DW Card
Anticipated Discharge: Today
Subjective/Interval History
-
Date of Service: April 22, 2024
Objective Data
-
Labs:
Laboratory Results
04/22/24
06:12
WBC 3.5 L
Hgb 12.3
Hct 35.8 L
Plt Count 176
Sodium 133 L
Potassium 4.0
Chloride 99
Carbon Dioxide 27
BUN 23 H
Creatinine 0.7
Glucose 90
Calcium 9.4
Vital Signs:
Vital Signs
Temp Pulse Resp BP Pulse Ox
36.3 C 80 16 148/85 97
04/22/24 07:25 04/22/24 08:42 04/22/24 08:21 04/22/24 08:42 04/22/24 08:21
I&O
04/21/24 04/22/24 04/23/24
06:59 06:59 06:59
Intake Total 240 / 240 940 / 940
Output Total 500 / 500
Balance -260 / -260 940 / 940
Review of Systems
-
Cardiac: Denies Chest Pain
Physical Exam
-
General: Well Developed, Well Nourished, No Apparent Distress, Comfortable and Conversant; Negative Respiratory Distress
HEENT: Normocephalic, Atraumatic, Nose Appears Normal and Ears Appear Normal; Negative Oxygen
Respiratory: Clear to Auscultation and Non Labored Respirations; Negative Accessory Resp Muscle Use
Cardiac: Regular Rhythm and S1/S2
GI: Soft, Nontender, Nondistended and Normal Bowel Sounds
Skin: Warm and Dry
Neuro: Awake, Alert, Oriented and AO x 3
Psych: Calm and Intact Judgement/Insight
Data Reviewed
-
Diagnostic Radiology: Image personally visualized and interpreted and Report Reviewed by me
Medical Tests (Nuc Med, Echo etc): Report Reviewed by me (echo) and Discussed with Patient
Labs: Labs Reviewed by me
[2024-04-22 11:15] VITALS: BP 128/66
[2024-04-22 11:19] VITALS: BP 128/66; BP 128/67; BP 131/70; PULSE 72; PULSE 73; O2SAT 100
--- NOTE | 2024-04-22 12:55 | W.DCSUMMARY ---
Discharge Summary
Discharge Data
Date of Admission: 04/20/24
Date of Discharge: 04/22/24
-
Pending Results: No
Hospital Course
Principal Diagnosis:
Resolved chest pain
Chronic hyponatremia due to Syndrome of inappropriate�antidiuretic�hormone (SIADH)
Chronic Diagnoses:�
Rheumatoid arthritis
Chronic ambulatory dysfunction
Paroxysmal atrial fibrillation
Sick sinus syndrome status post pacemaker
Essential hypertension
Hyperlipidemia
Hypothyroidism
Asthma, mild intermittent
Gastroesophageal reflux disease/Beck's esophagus
Irritable bowel syndrome
Chronic back pain
History of L4-L5 fusion laminectomy
Overactive bladder
Obstructive sleep apnea on CPAP
Seasonal allergies
Chronic leg lymphedema
Consultations:�
Cardiology
Procedures:�
None
Clinical course:�
This is a 78-year-old female with past medical history as stated above, who presented with chest pain which resolved after sublingual nitro. She was admitted for acute coronary syndrome rule out.
Problem 1:
Resolved chest pain.
Her Troponin were negative x3.
Her EKG noted paced rhythm.
Her Echo was unrevealing: EF 56%. Stage II diastolic dysfunction. Compared to prior study dated 10/30/2022, LV ejection fraction remains preserved. Mitral regurgitation has improved, previously moderate. Aortic regurgitation unchanged.
Given her chest pain did not recur, she was cleared by cardiology to return home. She can follow-up with cardiology for outpatient stress test.
Problem 2:
Chronic hyponatremia due to SIADH.
Her Na level was at 133 on the day of discharge.
Her TSH was within normal limits at 1.47.
She can continue with fluid restriction for SIADH.
As for the rest of her medical problems, they were stable during her hospital stay.
Discharge Plan
-
Patient Disposition: Home (Routine Discharge)
Discharge Diagnosis/Procedures: resolved chest pain; Chronic Hyponatremia due to SIADH
Condition: Fair
Diet: As tolerated, Low Fat, Low Cholesterol and Restrict fluids to 48 oz
Activity: As tolerated
Driving Restrictions: As prior to admission
Referrals:
Daya Torres PA-C [Specified Professional Personl] - 06/07/24 12:40 pm (You have a follow up visit with Dr. Edmond's Daya ALBA, at the [facility]. Please call with questions. )
Roopa Bolanos, DO [Family Provider] - in less than 1 week
Additional Discharge Medication Instructions: Continue with aspirin until further directed by your chief of production
Prescriptions:
New
aspirin [Children's Aspirin] 81 mg Tablet,Chewable
81 mg PO DAILY Qty: 30 0RF
Continued
atorvastatin 10 mg Tablet
10 mg PO Q48H
diltiazem HCl 240 mg capsule,extended release 24hr
240 mg PO HS
famotidine 40 mg Tablet
40 mg PO HS
gabapentin [Neurontin] 400 mg Capsule
400 mg PO QID
sotalol 120 mg Tablet
120 mg PO BID
acetaminophen [Tylenol Extra Strength] 500 mg Tablet
500 - 1,500 mg PO Q8HPRN PRN (Reason: mild pain)
levothyroxine 88 mcg Tablet
88 mcg PO DAILY
methotrexate sodium 2.5 mg Tablet
15 mg PO WE@1800
carboxymethylcellulose sodium [Refresh Tears] 0.5 % Drops
1 drp BOTH EYES Q1H
desloratadine 5 mg Tablet
5 mg PO DAILY
esomeprazole magnesium 40 mg Capsule,Delayed Release(Dr/Ec)
40 mg PO DAILY
buspirone 10 mg Tablet
10 mg PO BID
losartan 25 mg Tablet
25 mg PO DAILY
folic acid 1 mg Tablet
1 mg PO SUMOTUTHFRSA@0800
montelukast 10 mg Tablet
10 mg PO HS
furosemide 20 mg Tablet
20 mg PO DAILY
colchicine 0.6 mg Tablet
0.6 mg PO HS
fluticasone propionate 50 mcg/actuation [place],Suspension
2 spray INTRANASAL HS
qpbsiypvgcri-ovjqqsxd-xmwfpi Tablet
1 tab PO DAILY
Asmanex Twisthaler 220 mcg/ actuation (60) aerosol powdr breath activated
2 inh INHALATION R HS
Systane Nighttime 94-3 % Ointment
1 applic BOTH EYES HS
mirabegron [Myrbetriq] 25 mg tablet extended release 24 hr
25 mg PO QPM
Linzess 72 mcg capsule
72 mcg PO DAILY
Dayvigo 10 mg Tablet
10 mg PO HS
Metamucil
3 gummy PO Q48H@1200
Sleep 3
1 tab PO HS
biotin
1 tab PO .MID-DAY
Discharge Orders:
Discharge Patient (As Directed); Ordered 04/22/24
Ordered By: Viola Mclean
Discharge Date and Time
Print Language: SALVADOREAN
== END 2024-04-22 14:03 | disposition home or self-care (01) ==
LOC: 2 NORTH 23:58
PROVIDERS: Clinical Nurse Specialist Family Health; ADMITTING PHYSICIAN Hospitalist; ATTENDING PHYSICIAN Internal Medicine; EMERGENCY PHYSICIAN Emergency Medicine; FAMILY PHYSICIAN Family Medicine Geriatric Medicine; OTHER PHYSICIAN Internal Medicine Cardiovascular Disease
DX: R07.9 Chest pain, unspecified (principal); E22.2 Syndrome of inappropriate secretion of antidiuretic hormone; J45.20 Mild intermittent asthma, uncomplicated; K58.9 Irritable bowel syndrome, unspecified; G47.33 Obstructive sleep apnea (adult) (pediatric); E03.9 Hypothyroidism, unspecified; I48.0 Paroxysmal atrial fibrillation; I11.0 Hypertensive heart disease with heart failure; K44.9 Diaphragmatic hernia without obstruction or gangrene; M54.9 Dorsalgia, unspecified; M06.9 Rheumatoid arthritis, unspecified; E86.0 Dehydration; G89.29 Other chronic pain; E78.5 Hyperlipidemia, unspecified; K22.70 Barrett's esophagus without dysplasia; I89.0 Lymphedema, not elsewhere classified; N32.81 Overactive bladder; I25.10 Atherosclerotic heart disease of native coronary artery without angina pectoris; R26.2 Difficulty in walking, not elsewhere classified; G47.00 Insomnia, unspecified; K21.9 Gastro-esophageal reflux disease without esophagitis; Z87.19 Personal history of other diseases of the digestive system; Z87.891 Personal history of nicotine dependence; Z86.73 Personal history of transient ischemic attack (TIA), and cerebral infarction without residual deficits; Z87.01 Personal history of pneumonia (recurrent); Z95.0 Presence of cardiac pacemaker; Z90.710 Acquired absence of both cervix and uterus; Z95.5 Presence of coronary angioplasty implant and graft; Z79.01 Long term (current) use of anticoagulants; Z86.14 Personal history of Methicillin resistant Staphylococcus aureus infection; Z96.653 Presence of artificial knee joint, bilateral; Z88.6 Allergy status to analgesic agent; Z91.030 Bee allergy status; Z88.5 Allergy status to narcotic agent; Z91.048 Other nonmedicinal substance allergy status; Z79.51 Long term (current) use of inhaled steroids; Z79.890 Hormone replacement therapy; Z66 Do not resuscitate
CPT/HCPCS: 71046; 80048; 80053; 80061; 83735; 83930; 83935; 84300; 84443; 84484; 85025; 85027; 87070; 87147; 93005; 93306; 94640; 94660; 96374; 97116; 97162; 99285; G0378

== ENCOUNTER → 2024-05-16 12:47 | Outpatient (REF) | payer MEDICARE, BC, SELFPAY | LOC: DHCBC/DCA 12:47 | PROVIDERS: ATTENDING PHYSICIAN Internal Medicine Cardiovascular Disease; FAMILY PHYSICIAN Family Medicine Geriatric Medicine | DX: I48.0 Paroxysmal atrial fibrillation (principal); Z95.0 Presence of cardiac pacemaker; I25.10 Atherosclerotic heart disease of native coronary artery without angina pectoris; R07.89 Other chest pain; R26.81 Unsteadiness on feet | CPT/HCPCS: 78452; 93017; A9500; J2785 ==

== ENCOUNTER → 2025-02-15 14:00 | Outpatient (REF) | payer MEDICARE, BC, SELFPAY | LOC: HWRAD 14:00 | PROVIDERS: ATTENDING PHYSICIAN Urology; FAMILY PHYSICIAN Family Medicine Geriatric Medicine; REFERRING PHYSICIAN Internal Medicine Rheumatology | DX: M81.0 Age-related osteoporosis without current pathological fracture (principal); N13.1 Hydronephrosis with ureteral stricture, not elsewhere classified | CPT/HCPCS: 76775 ==

== ENCOUNTER → 2025-02-23 10:42 | Outpatient (REF) | payer MEDICARE, BC, SELFPAY | LOC: WDC 10:42 | PROVIDERS: ATTENDING PHYSICIAN Family Medicine Geriatric Medicine | DX: N64.4 Mastodynia (principal) | CPT/HCPCS: 76642; 77062; 77066 ==

== ENCOUNTER 2025-04-06 10:45 | Day surgery (SDC) | payer MEDICARE, BC, SELFPAY ==
[2025-04-06] VITALS (9 sets, daily range): BP systolic 112–127; BP diastolic 59–71; BMI 34.3
[2025-04-06 12:16] LABS: Hemoglobin 12.4 g/dL (12.0-16.0); Mean Corp Hgb Conc. 34.4 g/dL (33.0-37.0); Mean Platelet Volume 10.6 fL (7.4-10.4); Platelet Count 188 10^3/uL (130-400); Red Blood Cell Count 4.14 10^6/uL (4.20-5.40); Red Cell Dist. Width 17.2 % (11.5-14.5); White Blood Cell Count 3.8 10^3/uL (4.8-10.8)
[2025-04-06 12:23] LABS: Blood Urea Nitrogen 18 mg/dl (7-17); Calcium 9.2 mg/dl (8.4-10.2); Carbon Dioxide 27 mmol/L (22-30); Chloride 103 mmol/L (98-107); Estimated Creatinine Clearance 90 ml/min; Glucose 90 mg/dl (70-99); Potassium 4.2 mmol/L (3.5-5.1); Sodium 133 mmol/L (135-145); eGFR > 60.00
--- NOTE | 2025-04-06 12:52 | ITS.CL.ICD ---
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
Implantable Cardioverter Defibrillator
Procedure Report:
PACEMAKER GENERATOR CHANGE
Date of Procedure: April 06, 2025
Primary Care Provider: Dr. Roopa Bolanos
PROCEDURES:
1. Removal of dual chamber PPM generator at [facility]
2. Implant of new dual chamber PPM generator
INDICATION FOR PROCEDURE:
1. PPM generator at [facility]
2. Non-reversible symptomatic bradycardia due to sinus node dysfunction.
The patient was prepped and draped in sterile fashion. Lidocaine with epi was used for local anesthesia. An incision was made along the previous incision and the device and leads were carefully dissected from the pocket. Hemostasis was obtained
with electrocautery. The leads were from the device header and tested using an external analyzer. The pocket was liberally irrigated with antibiotic solution. Once testing (see below) showed adequate and stable function, the leads were
connected to the generator header and the leads and generator were placed within the pocket. The pocket was closed in the typical fashion.
EXPLANTED PPM GENERATOR:
Medtronic [id number], SN: [id number], Left Pectoral
IMPLANTED PPM GENERATOR:
Medtronic [id number], SN [id number]
RETAINED LEADS:
RA: Medtronic 5076-45, SN: [id number], RAA
RV: Medtronic 5076-52, SN: [id number], RV apical septum
DEVICE TESTING:
Sensing: RA 1.5 mV, RV 14 mV
Capture: RA AF , RV 1.25 V @ 0.4ms (presented in sinus rhythm but during the case developed atrial fibrillation during time of attempted right atrial pacing lead capture)
Ohms: RA 551, RV 475
FINAL PROGRAMMING
Ellis Pacing: DDDR 70-130 ppm
COMPLICATIONS:
None
CONCLUSIONS:
1. Successful explant of dual chamber permanent pacemaker
2. Successful implant of dual chamber permanent pacemaker
RECOMMENDATIONS:
1. In-Office wound check in 7-10 days.
2. Her atrial fibrillation burden traditionally has been very low. She did have a 15-hour episode several days ago which has been her longest episode in a very long time. In the past she has refused reconsideration for anticoagulation. In the
past we discussed watchman implantation but she has continued to defer. I will once again approach her about resuming anticoagulation as we continue to follow atrial fibrillation burden.
Copy to:
Roopa Bolanos
[2025-04-06] MEDS: VANCOCIN 530 MG IV (15:07)
--- NOTE | 2025-04-06 15:58 | PTCARENOTE ---
Patient had positive MRSA swab on 04/21/2024 & 03/24/2017. HEIDI Finley aware. Patient was given Ancef 2grams IV in procedure room prior to Gene Change. Vancomycin IV started as ordered. See MAR for documentation. Repeat MRSA swab obtained and sent
to lab as ordered.
== END 2025-04-06 17:21 | disposition home or self-care (01) ==
LOC: CATH 10:45
PROVIDERS: Nurse Practitioner Adult Health; ATTENDING PHYSICIAN Internal Medicine Cardiovascular Disease; FAMILY PHYSICIAN Family Medicine Geriatric Medicine
DX: Z45.010 Encounter for checking and testing of cardiac pacemaker pulse generator [battery] (principal); I49.5 Sick sinus syndrome; I48.91 Unspecified atrial fibrillation; I10 Essential (primary) hypertension; Z86.73 Personal history of transient ischemic attack (TIA), and cerebral infarction without residual deficits; G47.33 Obstructive sleep apnea (adult) (pediatric); Z88.5 Allergy status to narcotic agent; Z88.6 Allergy status to analgesic agent; Z91.030 Bee allergy status; I08.0 Rheumatic disorders of both mitral and aortic valves; Z79.82 Long term (current) use of aspirin; Z79.890 Hormone replacement therapy; Z79.899 Other long term (current) drug therapy
CPT/HCPCS: 33228; 80048; 85027; 87070; 87147; C1785

== ENCOUNTER 2025-04-23 12:45 | Emergency (ER) | payer MEDICARE, BC, SELFPAY ==
[2025-04-23 12:48] VITALS: BP 160/84
[2025-04-23 13:45] VITALS: BMI 33.7
[2025-04-23 13:47] VITALS: BP 147/72
[2025-04-23 14:00] VITALS: BP 144/74
--- NOTE | 2025-04-23 14:19 | ED.GENMED ---
History of Present Illness
General
Chief Complaint: Fall
Source: patient
Exam Limitations: none
Time Seen by Provider: 04/23/25 13:58
History of Present Illness
History of Present Illness:
79-year-old female tripped and fell landing on her face. This occurred just prior to ER arrival. Mild neck pain also. No syncope. Also hit her left knee. Able to bear weight. No chest pain abdominal pain no other extremity trauma. Tetanus
less than 10. Patient is anticoagulated.
Past History
Past History
ED Past Medical History: Arrthythmia (afib on eliquis), Asthma, GERD, HTN, Hypothyroidism and Other (Back pain, sciatica, TIA, PNA, Sleep apnea, MVP, barretts esophagus, GI bleeding, Hiatal hernia, IBS, )
ED Past Surgical History: Cardiac (Pacemaker placement, Ablation), , Gynecological (hysterectomy), Orthopedic ( L4-L5 fusion and laminectomy, Aakash knee replacement, left shoulder rotator cuff and biceps repair, carpal tunnel, Elbow surgery,
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
Social History
Tobacco: Former smoker
Alcohol: Occasional
Drug: None
Personal:
Living: alone
Employment: Retired
Family History
Family History: Other
Review of Systems
Review of Systems
All Other Systems: Not applicable
Respiratory: Reports no symptoms
Cardiac: Reports no symptoms
ABD/GI: Reports no symptoms
Phy Exam
Physical Exam
Physical Exam:
TRAUMA EXAM:
VITAL SIGNS: Vital signs reviewed, cooperative
DISTRESS: No active disease
EYES: Pupils reactive, no orbital trauma. Extraocular muscles intact
NOSE: No deformity or epistaxis
FACE AND SCALP: Large left eyebrow/forehead hematoma with superficial abrasion. No other facial trauma
NECK: Supple nontender
BACK: Back nontender, pelvis stable to compression
RESPIRATORY: No distress, breath sounds normal, no tender chest wall
CARDIAC: No murmur, pulses equal and strong
ABDOMEN: Soft nontender bowel sounds normal
SKIN: Very superficial abrasions to the right hand. No deep bony tenderness
EXTREMITIES: Mild tenderness to the left knee. Old vertical scar anteriorly. Able to straight leg raise. No laxity.
NEUROLOGICAL: Alert, oriented, no motor deficits
PSYCH: Mood affect normal
Course
Orders/Labs/Results
Orders:
Orders
04/23/25 12:51
CT Cervical Spine W/o Iv Contr Urgent
Comment:
Reason For Exam: neck pain post fall
CT Head W/o Iv Contrast Urgent
Comment:
Reason For Exam: on elquis head injury
04/23/25 14:[address] Non Medication Order As Directed
Physician Order: please clean/dress wound
Above order entered?: Yes
Knee, Left 4 or More Views [CR Knee - Left 4 Or More View*] Urgent
Comment:
Reason For Exam: trauma
04/23/25 14:[address] Non Medication Order As Directed
Physician Order: pacemaker interrogation thx
Above order entered?: Yes
04/23/25 19:30
CT Head W/o Iv Contrast Urgent
Comment:
Reason For Exam: Head injury anticoagulated
04/23/25 21:02
Acetaminophen [Tylenol] 1,000 mg .ROUTE .STK-MED ONE
04/23/25 21:05
Acetaminophen [Tylenol] 1,000 mg PO NOW STA
Vital Signs
Initial and Last Documented VS:
Initial Vital Signs
Temp Pulse Resp BP Pulse Ox
98.0 F 73 20 160/84 99
04/23/25 12:48 04/23/25 12:48 04/23/25 12:48 04/23/25 12:48 04/23/25 12:48
Last Documented Vital Signs
Temp Pulse Resp BP Pulse Ox
98.6 F 85 16 132/62 99
04/23/25 13:47 04/23/25 18:25 04/23/25 18:25 04/23/25 18:25 04/23/25 18:25
MDM/Problems Addressed
Differential Diagnosis Includes:
Patient not describing syncope. Very much describing a trip and fall. However with pacemaker history we will interrogate the pacer. As for the direct head trauma, patient is awake alert in no distress. Head CT is negative. However with
significant trauma feel 6-hour observation and repeat scan is warranted. Also will x-ray the left knee.
*Pulse Oximetry
Patient hypoxic: no (99%)
*Critical Care Note
Total Time (30-74mins, 75-104mins- exclusive of procedures): Not Applicable
Update Note
Update Note:
Repeat CT stable. Patient stable. Discharged to follow-up
ED Attending Note
-
Portions of this chart may have been created with voice recognition software.� Occasional wrong word or��sound alike� substitutions may have occurred due to the inherent limitations of voice recognition software.
Discharge Plan
Departure
Patient Disposition: Home (Routine Discharge)
Date of Disposition: 04/23/25
Time of Disposition: 20:44
Patient with high blood pressure during this ER visit?: Yes
Discharge Problem:
Head injury/anticoagulated, Forehead hematoma/abrasion, Left knee contusion, Sinusitis
Instructions: Head Injury in Adults (DC), Contusion (DC), Skin Abrasions (DC), BLOOD PRESSURE
Prescriptions:
New
cefuroxime axetil 500 mg tablet
500 mg PO BID 10 Days Qty: 20 0RF
No Action
atorvastatin 10 mg Tablet
10 mg PO Q48H
diltiazem HCl 240 mg capsule,extended release 24hr
240 mg PO HS
famotidine 40 mg Tablet
40 mg PO HS
gabapentin [Neurontin] 400 mg Capsule
400 mg PO QID
acetaminophen [Tylenol Extra Strength] 500 mg Tablet
500 mg PO Q8HPRN PRN (Reason: mild pain)
levothyroxine 88 mcg Tablet
88 mcg PO DAILY
methotrexate sodium 2.5 mg Tablet
15 mg PO WE@1800
carboxymethylcellulose sodium [Refresh Tears] 0.5 % Drops
1 drp BOTH EYES Q1H
esomeprazole magnesium 40 mg Capsule,Delayed Release(Dr/Ec)
40 mg PO DAILY
folic acid 1 mg Tablet
1 mg PO HS
montelukast 10 mg Tablet
10 mg PO HS
furosemide 20 mg Tablet
20 mg PO DAILY
colchicine 0.6 mg Tablet
0.6 mg PO HS
fluticasone propionate 50 mcg/actuation [place],Suspension
2 spray INTRANASAL DAILY
Asmanex Twisthaler 220 mcg/ actuation (60) aerosol powdr breath activated
2 inh INHALATION BID
Linzess 72 mcg capsule
72 mcg PO DAILY
Dayvigo 10 mg Tablet
10 mg PO HS
Metamucil
3 gummy PO Q48H
aspirin [Children's Aspirin] 81 mg Tablet,Chewable
81 mg PO DAILY Qty: 30 0RF
A Reds Vision Vitamin
1 tab PO BID
buspirone 5 mg Tablet
5 mg PO BID
cetirizine [Zyrtec] 10 mg Tablet
10 mg PO DAILY
sotalol 80 mg Tablet
80 mg PO BID
calcium carbonate-vitamin D2 600 mg calcium- 200 unit Tablet
1 tab PO BID
melatonin 3 mg Capsule
3 mg PO HS PRN (Reason: sleep)
biotin 5,000 mcg Tablet,Chewable
5,000 mcg PO HS
Referrals:
Roopa Bolanos DO [Family Provider, Family Practice] - Follow up in 2-3 days
Activity Restrictions/Additional Instructions:
To consider follow-up CT this Wednesday morning before your flight for completeness
There is sinusitis on your CT. This is not unusual.
Interventions
Interventions:
*Risk Screen - Suicide Last Done: 04/23/25 13:47
*General Assessment Last Done: 04/23/25 12:48
*Neglect/Abuse Screening Last Done: 04/23/25 13:47
*ED- Fall Risk Assessment Last Done: 04/23/25 13:47
*ED COVID-19 Vaccine History Last Done: 04/23/25 13:47
ED-Musculoskeletal Assessment Last Done: 04/23/25 13:47
ED- Neurological Assessment Last Done: 04/23/25 13:47
ED-Skin Assessment Last Done: 04/23/25 13:47
Discharge Date and Time
Print Language: KUWAITI
[2025-04-23 15:00] VITALS: BP 132/62
[2025-04-23 18:25] VITALS: BP 132/62
[2025-04-23] MEDS: TYLENOL 1000 MG PO (21:05)
[2025-04-23 22:32] VITALS: BP 130/67
== END 2025-04-23 22:34 | disposition home or self-care (01) ==
LOC: EMR 12:45
PROVIDERS: EMERGENCY PHYSICIAN Emergency Medicine; FAMILY PHYSICIAN Family Medicine Geriatric Medicine
DX: S09.90XA Unspecified injury of head, initial encounter (principal); S00.03XA Contusion of scalp, initial encounter; S80.02XA Contusion of left knee, initial encounter; J01.00 Acute maxillary sinusitis, unspecified; J32.0 Chronic maxillary sinusitis; W01.0XXA Fall on same level from slipping, tripping and stumbling without subsequent striking against object, initial encounter; Z95.0 Presence of cardiac pacemaker; I10 Essential (primary) hypertension; Z87.891 Personal history of nicotine dependence
CPT/HCPCS: 99285; 93288; 70450; 72125; 73564

== ENCOUNTER 2025-07-05 06:18 | Day surgery (SDC) | payer MEDICARE, BC, SELFPAY ==
[2025-07-05 13:45] VITALS: BP 130/61
[2025-07-05 14:00] VITALS: BMI 32.8
[2025-07-05 16:33] VITALS: BP 102/82
[2025-07-05 16:45] VITALS: BP 125/74
== END 2025-07-05 17:10 | disposition home or self-care (01) ==
LOC: SDS 06:18
PROVIDERS: ATTENDING PHYSICIAN Internal Medicine Gastroenterology
DX: D12.0 Benign neoplasm of cecum (principal); D12.2 Benign neoplasm of ascending colon; D12.3 Benign neoplasm of transverse colon; D12.4 Benign neoplasm of descending colon; K64.8 Other hemorrhoids; K64.4 Residual hemorrhoidal skin tags; R19.4 Change in bowel habit; K22.89 Other specified disease of esophagus; K31.7 Polyp of stomach and duodenum; K44.9 Diaphragmatic hernia without obstruction or gangrene; Z79.01 Long term (current) use of anticoagulants
CPT/HCPCS: 45385; 43239; 87220; 88305

== ENCOUNTER → 2025-09-06 10:46 | Outpatient (REF) | payer MEDICARE, BC, SELFPAY ==
[2025-09-06 11:23] LABS: Hematocrit 33.7 % (37.0-47.0); Hemoglobin 11.4 g/dL (12.0-16.0); Mean Corp Hgb Conc. 33.8 g/dL (33.0-37.0); Mean Corpuscular Volume 89.6 fL (81.0-99.0); Nucleated Red Blood Cells % 0 %; Platelet Count 231 10^3/uL (130-400); Red Cell Dist. Width 16.7 % (11.5-14.5)
[2025-09-06 11:26] LABS: ALT (SGPT) < 10 U/L (0-35); AST (SGOT) 15 U/L (14-36); Albumin 3.8 g/dl (3.5-5.0); Alkaline Phosphatase 66 U/L (38-126); Blood Urea Nitrogen 14 mg/dl (7-17); Calcium 9.0 mg/dl (8.4-10.2); Carbon Dioxide 28 mmol/L (22-30); Chloride 95 mmol/L (98-107); Glucose 91 mg/dl (70-99); INR 1.27; Magnesium 2.1 mg/dl (1.6-2.3); PT 16.4 Sec (11.4-14.6); Potassium 4.3 mmol/L (3.5-5.1); Sodium 128 mmol/L (135-145); Total Protein 6.1 g/dl (6.3-8.2); eGFR > 60.00
== END ==
LOC: SDSPAT 10:46
PROVIDERS: ATTENDING PHYSICIAN Internal Medicine Cardiovascular Disease; FAMILY PHYSICIAN Family Medicine Geriatric Medicine
DX: I48.0 Paroxysmal atrial fibrillation (principal)
CPT/HCPCS: 36415; 80053; 83735; 85025; 85610; 86850; 86900; 86901; 87070; 87147; 93005

== ENCOUNTER 2025-09-12 10:45 | Emergency (ER) | payer MEDICARE, BC, SELFPAY ==
[2025-09-12] VITALS (7 sets, daily range): BP systolic 105–132; BP diastolic 65–84; BMI 33.2
[2025-09-12 11:07] LABS: Hematocrit 34.1 % (37.0-47.0); Hemoglobin 11.5 g/dL (12.0-16.0); Mean Corp Hgb Conc. 33.7 g/dL (33.0-37.0); Mean Corpuscular Volume 89.5 fL (81.0-99.0); Nucleated Red Blood Cells % 0 %; Platelet Count 238 10^3/uL (130-400); Red Cell Dist. Width 16.4 % (11.5-14.5)
[2025-09-12 11:31] LABS: Troponin I < 0.012 ng/ml
--- NOTE | 2025-09-12 11:32 | ED.GENMED ---
History of Present Illness
General
Chief Complaint: Chest Pain
Source: patient
Exam Limitations: none
Time Seen by Provider: 09/12/25 11:19
Nursing documentation reviewed up to this point in time: agreed with
History of Present Illness
History of Present Illness:
Patient is a 80-year-old female with history aortic stenosis, atrial fibrillation on Eliquis, hypertension, GERD who presents to the emergency department for evaluation of chest pain. She states that she developed a sharp pain in her left chest
last night around 8 PM. Symptoms seem to start after she ate dinner. She states the pain has been relatively constant since onset without any clear exertional component. Pain seemed worse when lying on her left side last night while sleeping.
She states that when she was in the ambulance and route to the emergency department symptoms seem exacerbated with deep inspiration. No radiation of pain into back, jaw, or shoulder. She denies any associated shortness of breath, fever, productive
cough.
She states that they did have salsa before dinner last night and initially thought it may be acid reflux from spicy food. However, when pain was persistent this morning she contacted her nursing scheduler, Dr. Edmond who recommended immediate
evaluation in the emergency department.
Patient was given 324 of aspirin via EMS.
Patient is scheduled for a ablation and Watchman device placement on Wednesday.
Past History
Past History
ED Past Medical History: Arrthythmia (afib on eliquis), Asthma, GERD, HTN, Hypothyroidism and Other (Back pain, sciatica, TIA, PNA, Sleep apnea, MVP, barretts esophagus, GI bleeding, Hiatal hernia, IBS, )
ED Past Surgical History: Cardiac (Pacemaker placement, Ablation), , Gynecological (hysterectomy), Orthopedic ( L4-L5 fusion and laminectomy, Aakash knee replacement, left shoulder rotator cuff and biceps repair, carpal tunnel, Elbow surgery,
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
Social History
Tobacco: Former smoker
Alcohol: Occasional
Drug: None
Personal:
Living: alone
Employment: Retired
Family History
Family History: Other
Review of Systems
Review of Systems
Allergies reviewed?: Yes
All Other Systems: ROS reviewed and negative except as documented in HPI and ROS
Phy Exam
Physical Exam
Physical Exam:
Vitals: Very mildly tachycardic on arrival. Otherwise vital signs stable. Afebrile
General: Patient appears in no distress
Skin: Warm and dry, no rashes or lesions
Head: Normocephalic, atraumatic
Eyes: Sclera nonicteric.
Throat: Protecting airway
Neck: Normal ROM, no cervical spine tenderness, no meningismus
Cardiac: Regular rate and irregular rhythm, no murmurs.
Pulm: Normal respiratory effort. Lungs clear bilaterally
Abdomen: No abdominal tenderness.
Extremities: Edema of bilateral lower extremities without any associated tenderness.
Neuro: AAOx3. Grossly intact.
Psychiatric: Normal affect.
Scores
Heart Score for Chest Pain Patients
STEMI patient?: Not applicable
Course
Orders/Labs/Results
Orders:
Orders
09/12/25 10:48
Electrocardiogram (*1) Urgent
Reason for Study: Chest Pain
EKG- Treatment ONCE
Interrogate Pacemaker- Treatment ONCE
09/12/25 10:55
Complete Blood Count/With Diff Urgent
Comprehensive Metabolic Panel Urgent
Troponin I Urgent
09/12/25 11:32
CR Chest - 2 Views Urgent
Comment:
Reason For Exam: Left sided CP
09/12/25 11:48
D-Dimer Urgent
09/12/25 13:55
Electrocardiogram (*1) Urgent
Reason for Study: Chest Pain
EKG- Treatment ONCE
09/12/25 14:37
Troponin I Urgent
Abnormal Lab Results
09/12/25 09/12/25
10:55 11:48
RBC 3.81 L 10^6/uL
(4.20-5.40)
Hgb 11.5 L g/dL
(12.0-16.0)
Hct 34.1 L %
(37.0-47.0)
RDW 16.4 H %
(11.5-14.5)
Abs Immat Gran (auto) 0.1 H 10^3/uL
(0-0.05)
Absolute Lymphs (auto) 0.8 L 10^3/uL
(1.2-3.4)
Absolute Monos (auto) 1.0 H 10^3/uL
(0.1-0.6)
Immature Gran % 0.7 H %
(0-0.5)
Lymphocytes % 10.6 L %
(20.5-51.1)
Monocytes % 12.8 H %
(1.7-9.3)
D-Dimer 0.54 H ug/mlFEU
(0.00-0.50)
Sodium 129 L mmol/L
(135-145)
Total Protein 5.8 L g/dl
(6.3-8.2)
09/12/25 10:55
09/12/25 10:55
Vital Signs
Initial and Last Documented VS:
Initial Vital Signs
Temp Pulse Resp BP Pulse Ox
97.7 F 102 15 105/76 100
09/12/25 10:49 09/12/25 10:49 09/12/25 10:49 09/12/25 10:49 09/12/25 10:49
Last Documented Vital Signs
Temp Pulse Resp BP Pulse Ox
97.7 F 89 16 123/71 96
09/12/25 10:49 09/12/25 15:59 09/12/25 15:59 09/12/25 16:00 09/12/25 13:45
MDM/Problems Addressed
Differential Diagnosis Includes:
Not limited to: Muscle strain, GERD, pleurisy, costochondritis, pericarditis, myocarditis, acute coronary syndrome, pulmonary embolism, pneumothorax, etc.
MDM/Problems Addressed:
80-year-old female with left sided chest pain since last night. No associated exertional component or shortness of breath. She reports one episode of pleuritic component while en route via EMS however this has resolved. No infectious symptoms.
Patient scheduled for ablation and watchmen device placement on Wednesday.
Patient is anticoagulated on Eliquis.
Patient very mildly tachycardic on arrival otherwise stable. On exam, she appears in no distress. No reproducible chest wall tenderness or rash. Abdomen soft and nontender. Lungs clear bilaterally. She has chronic swelling of bilateral lower
extremities without any new erythema, warmth, or tenderness
Work up in ED negative for acute cardiac emergent pathology. Basic labs unremarkable. Hyponatremia noted however appears to be her baseline. Troponins negative times two. D-dimer age adjusted normal. Chest x-ray fine. EKG without acute ischemic
changes.
Her vital signs have normalized and she appears well.
Impression is atypical chest pain. No evidence of acute cardiac/pulmonary process today. Age adjusted d-dimer normal and patient anticoagulated on Eliquis � PE very unlikely. No evidence of acute ischemia.
Feel stable for discharge home. Placed patient on chest pain hotline. Discussed very strict return precautions. Patient comfortable with plan.
Chronic conditions affecting care:
Atrial fibrillation on Eliquis, aortic stenosis
Acute Exacerbation and/or Progression of Chronic Illness:
N/A
*Pulse Oximetry
SaO2: 100
Oxygen Mode of Delivery: Room air
Patient hypoxic: no
*EKG
Interpreted by ED Provider?: Yes
EKG Intrepretation Date: 09/12/25
Interpretation: abnormal
Comparison EKG: changes noted
Heart Rate: 82
Rate: normal
Rhythm: PVC's
[place]: normal axis
Interval: normal QT interval
Ischemia: non-specific ST changes
*Fitness/Wellness Director Interpretation
Rate: tachycardiac
Interpretation: abnormal
Heart Rate: 103
Rhythm: PVC's
*Critical Care Note
Total Time (30-74mins, 75-104mins- exclusive of procedures): Not Applicable
ED Attending Note
-
Portions of this chart may have been created with voice recognition software.� Occasional wrong word or��sound alike� substitutions may have occurred due to the inherent limitations of voice recognition software.
Discharge Plan
Departure
Patient Disposition: Home (Routine Discharge)
Date of Disposition: 09/12/25
Time of Disposition: 15:55
Patient with high blood pressure during this ER visit?: No
Condition: Good
Discharge Problem:
Chest pain
Instructions: Chest Pain DCA Follow Up, BLOOD PRESSURE
Prescriptions:
No Action
atorvastatin 10 mg Tablet
10 mg PO Q48H
Patient Comments:
odd days
diltiazem HCl 240 mg capsule,extended release 24hr
240 mg PO DAILY@1800
famotidine 40 mg Tablet
40 mg PO HS
gabapentin [Neurontin] 400 mg Capsule
400 mg PO QID
acetaminophen [Tylenol Extra Strength] 500 mg Tablet
500 mg PO Q8HPRN PRN (Reason: mild pain)
levothyroxine 88 mcg Tablet
88 mcg PO DAILY
methotrexate sodium 2.5 mg Tablet
15 mg PO WE@1800
carboxymethylcellulose sodium [Refresh Tears] 0.5 % Drops
1 drp BOTH EYES Q1H
folic acid 1 mg Tablet
1 mg PO DAILY
montelukast 10 mg Tablet
10 mg PO HS
colchicine 0.6 mg Tablet
0.6 mg PO HS
fluticasone propionate 50 mcg/actuation [place],Suspension
2 spray INTRANASAL HS
Asmanex Twisthaler 220 mcg/ actuation (60) aerosol powdr breath activated
2 inh INHALATION HS
Linzess 72 mcg capsule
72 mcg PO DAILY
Dayvigo 10 mg Tablet
10 mg PO HS
Metamucil
3 gummy PO Q48H
A Reds Vision Vitamin
1 tab PO BID
buspirone 5 mg Tablet
5 mg PO BID
sotalol 80 mg Tablet
80 mg PO BID
calcium carbonate-vitamin D2 600 mg calcium- 200 unit Tablet
1 tab PO BID
melatonin 3 mg Capsule
3 mg PO HS PRN (Reason: sleep)
biotin 5,000 mcg Tablet,Chewable
5,000 mcg PO DAILY
Eliquis 5 mg Tablet
5 mg PO BID
Centrum Silver Tablet
1 tab PO DAILY
loratadine [Claritin] 10 mg Tablet
10 mg PO DAILY@1800
pantoprazole 40 mg Tablet,Delayed Release (Dr/Ec)
40 mg PO DAILY
polyethylene glycol 3350 [Miralax] 17 gram/dose Powder
4 g PO DAILY
mirabegron 25 mg tablet extended release 24 hr
25 mg PO Q48H
Referrals:
Milan Edmond MD [Active, Cardiology] - Next open appointment
UNKNOWN - PT DOES,NOT KNOW [Family Provider]
Activity Restrictions/Additional Instructions:
RETURN TO THE EMERGENCY DEPARTMENT WITH ANY CHEST PAIN, SHORTNESS OF BREATH/DIFFICULTY BREATHING, SEVERE BACK PAIN, LIGHTHEADEDNESS, DIZZINESS, WORSENING IN CURRENT SYMPTOMS, OR ANY OTHER CONCERNS
- As discussed the workup in the emergency department showed no acute abnormalities. You had 2 negative troponins. Your chest x-ray showed no acute findings.
- Please continue to take Tylenol as needed for discomfort.
- Follow-up with cardiology for further evaluation/management and to ensure that your symptoms are improving.
Monitor your symptoms closely and return to the emergency department with any acute worsening/new symptoms or any other concerns
Interventions
Interventions:
*Risk Screen - Suicide Last Done: 09/12/25 10:49
*General Assessment Last Done: 09/12/25 11:05
*Neglect/Abuse Screening Last Done: 09/12/25 10:49
*ED- Fall Risk Assessment Last Done: 09/12/25 11:05
*ED COVID-19 Vaccine History Last Done: 09/12/25 10:49
*ED Influenza Vaccine History Last Done: 09/12/25 10:49
*Nursing Disposition Last Done: 09/12/25 16:23
ED- Cardiac Assessment Last Done: 09/12/25 11:05
Discharge Date and Time
Discharge Date/Time: 09/12/25 16:24
Print Language: TURKISH
[2025-09-12 11:45] LABS: ALT (SGPT) < 10 U/L (0-35); AST (SGOT) 26 U/L (14-36); Albumin 3.5 g/dl (3.5-5.0); Alkaline Phosphatase 62 U/L (38-126); Blood Urea Nitrogen 17 mg/dl (7-17); Calcium 8.8 mg/dl (8.4-10.2); Carbon Dioxide 26 mmol/L (22-30); Chloride 98 mmol/L (98-107); Estimated Creatinine Clearance 84 ml/min; Glucose 95 mg/dl (70-99); Potassium 4.7 mmol/L (3.5-5.1); Sodium 129 mmol/L (135-145); Total Protein 5.8 g/dl (6.3-8.2); eGFR > 60.00
[2025-09-12 12:13] LABS: D-Dimer 0.54 ug/mlFEU (0.00-0.50)
[2025-09-12 15:13] LABS: Troponin I < 0.012 ng/ml
== END 2025-09-12 16:24 | disposition home or self-care (01) ==
LOC: EMR 10:45
PROVIDERS: Physician Assistant; EMERGENCY PHYSICIAN Emergency Medicine
DX: R07.89 Other chest pain (principal); I49.3 Ventricular premature depolarization; I48.91 Unspecified atrial fibrillation; E03.9 Hypothyroidism, unspecified; G47.30 Sleep apnea, unspecified; I10 Essential (primary) hypertension; I35.0 Nonrheumatic aortic (valve) stenosis; J45.909 Unspecified asthma, uncomplicated; Z79.01 Long term (current) use of anticoagulants; Z87.01 Personal history of pneumonia (recurrent); Z87.891 Personal history of nicotine dependence; Z95.0 Presence of cardiac pacemaker
CPT/HCPCS: 99285; 71046; 80053; 84484; 85025; 85379; 93005

== ENCOUNTER 2025-09-17 06:33 | Inpatient (IN) | payer MEDICARE, BC, SELFPAY ==
[2025-09-06 11:55] VITALS: BMI 32.5
[2025-09-17] VITALS (21 sets, daily range): BP systolic 92–114; BP diastolic 16–70; BMI 32.4
--- NOTE | 2025-09-17 07:56 | ITS.CL.ABL ---
Gambling Monitor - Ablation
Ablation
Procedure Report:
ELECTROPHYSIOLOGIC STUDY AND POSSIBLE ABLATION
DATE: September 17, 2025
Primary Care Provider: Roopa Bolanos DO
INDICATION:
Symptomatic Atrial Fibrillation.
Paroxysmal
HISTORY: See H and P.
Symptomatic AF, poorly controlled with attempted medical therapy
She has a complex medical history which includes includes psychogenic polydipsia and severe hyponatremia, hypothyroidism, medical noncompliance, PAF, syncope, SSS, prior Medtronic dual chamber PPM, Now PPM DEPENDENT,�PAULETTE (on CPAP), vertigo treated
with vestibular therapy in the past, symptomatic paroxysmal atrial fibrillation s/p PVI in February 2018 for symptomatic AF, chronic LE edema, orthopedic issues, gait instability, recurrent traumatic falls, HFpEF.
[facility] notes normal left ventricular size and function, normal RV size and function, pacemaker leads noted within the right sided chambers. Mild left atrial dilatation. Moderate aortic regurgitation
without stenosis. Mild mitral insufficiency and mild tricuspid insufficiency.
HAS-BLE 3D:
Age
H/O Bleeding
Alcohol use
CHADSVASc: 4
CHF, NYHA Class 3, HFpEF
Age
Gender
PRESENTING RHYTHM: AF
HISTORY: See H and P.
Symptomatic AF, poorly controlled with attempted medical therapy.
ANTIARRHYTHMIC DRUG: Sotalol 80 mg twice daily
ANTICOAGULATION: Eliquis 5 mg twice daily
'TIME-OUT': called and confirmed.
SEDATION/ANESTHESIA: provided via the anesthesia department using general anesthesia.
PROCEDURE:
Ultrasound Guidance with real-time visualization of needle insertion and vessel patency performed by la for femoral venous Vascular Access.
Under real-time US guidance, the needle was advanced with negative pressure into the vein. The needle was seen entering the vessel lumen with a good return of dark red flow, the syringe was removed, non-pulsatile, dark red blood low was noted and
the wire was passed without difficulty, then the needle was removed. US confirmed the wire was in the vein, not going into an artery,
Images were taken and saved for the patient's permanent record. Imaging findings typical femoral venous anatomy. Direct visualization of needle puncture into the femoral vein was observed and recorded.
3 sheaths were inserted into the right femoral vein.
10 Fr, 10Fr, 7 Fr. A 10fr sheath was then exchanged for the 16.8 Fr Faradrive deflectable sheath and dilator over a wire.
A decapolar CS catheter was positioned within the CS for mapping and pacing.
The intracardiac ultrasound catheter was positioned in the RA for continuous intracardiac ultrasound imaging.
Heparin bolus and infusion to target ACT at 300 -350 seconds was administered. Transseptal puncture was performed. This entailed advancing a sheath with dilator into the superior vena cava and withdrawing both (monitoring intracardiac ultrasound,
fluoroscopy and tip pressure) with the tip oriented toward the atrial septum. The fossa ovalis was engaged (indicated by sudden displacement of the sheath tip as well as tenting of the fossa seen on intracardiac ultrasound).
The [employer] transseptal system utilizing VersaCross RF was used. Left atrial catheter position was confirmed by echocardiographic imaging and fluoroscopy followed by RF delivery using the [employer] system resulting in successful LA access with
pressure monitoring demonstrating LA pressure waveforms (LA mean pressure 7 mm Hg). The Faradrive sheath was advanced over the dilator and positioned in the left atrium.
The Kovacs Grid multipolar mapping catheter was initially positioned through the transseptal sheath for high density mapping.
Geometry and voltage mapping was performed using the Kovacs multipolar grid catheter. Ensite-X was utilized for three-dimensional electroanatomical mapping.
A 3-D map was created using Ensite-X in Voxel mode. A 3-D reconstructed CT image was compared to the 3-D Navex map to assist in anatomic evaluation, mapping and ablation.
The FarapiPositioning PFA catheter and system was used for cardiac ablation. Catheter positioning was guided and confirmed using both I.C.E. and fluoroscopy.
Ablation strategy included PVI as well as mapping for extra PV contributors to atrial fibrillation which would also be targeted if present.
High density electroanatomical three-dimensional mapping demonstrated four PVs: LSPV, LIPV, RSPV, RIPV.
There is electrical reconnection at the RSPV anteriorly and at the LSPV along its post-inferior quadrant.
PFA application via the Doretha wave ablation catheter resulted in electrical isolation of the pulmonary veins.
During PFA delivery to the right superior pulmonary vein along its anterior superior quadrant, atrial fibrillation converted to sinus rhythm.
After accomplishing pulmonary venous isolation, mapping identified additional areas likely to be extra PV contributors to atrial fibrillation. These areas demonstrated patchy low voltage as well as complex fractionated electrograms. These areas can
be sites for the formation of rotors which can drive and maintain atrial fibrillation. These areas are known to be significant contributors to initiation and perpetuation of atrial fibrillation.
Additional energy applications/additional ablation sets targeted extra PV contributors to atrial fibrillation.
Targets for additional PFA ablation included:
LA posterior wall targeted with pulsed electric field energy isolating the posterior wall of the left atrium
After ablation of the posterior wall, additional targets were addressed:
LA inferior floor
These areas were ablated using pulsed electric field energy eliminating the extra PV contributors to atrial fibrillation.
Post ablation mapping finds entrance and exit block at each of the pulmonary veins (LSPV, LIPV, RSPV, RIPV), the LA posterior wall and at the additional lines at Inferior/floor of the LA rendering the sites no longer able to contribute to atrial
fibrillation.
Programmed electrostimulation included burst atrial pacing which failed to induce any sustained arrhythmias. With the delivery of atrial decremental extrastimuli at 600/290 ms a left atrial tachycardia was induced.
High density electroanatomical mapping using the Kuldat grid catheter to find a micro reentrant circuit along the anterior LA roof. PFA delivery using the [place] of catheter in a flower configuration was then applied to the targeted area along the
anterior roof of the left atrium. This terminated the atrial tachycardia to atrial fibrillation.
Cardioversion then restored sinus rhythm.
I.C.E. :
Pre-Ablation Post-Ablation
LVEF: 55 % 55 %
WMA: none none
Pericardial effusion: none none
LA Pressure (mmHg) 7 (AF) 17 (SR)
COMPLICATIONS:
None
SUMMARY:
- Mapping and ablation to isolate the PVs resulting in electrical isolation of the pulmonary veins
- Additional AF ablation sets X 2 after PVI (LA posterior wall, Inf/floor of the LA posterior wall, Ligament of Jaime) resulting in elimination of the targeted extra PV contributors to atrial fibrillation.
- Mapping and ablation of second tachycardia
- 3-D Electroanatomical Mapping
- Intracardiac Ultrasound
- Ultrasound guidance for vascular access
There is no change in the fluoroscopic appearance of the atrial and ventricular pacing leads at the end of the study once all temporary catheters were removed from the heart.
Post ablation, I discussed today's findings and results with the patient's son, Michael.
RECOMMENDATIONS:
- Observe in monitored bed.
- Maintain oral anticoagulation.
- Continue Sotalol at 80 mg BID
- Office visit HEIDI Lim in 2 to 3 months.
Copy to:
Primary Care Provider: Roopa Bolanos, DO
--- NOTE | 2025-09-17 08:04 | WATCHMAN.MD ---
Watchman Implant
-
WATCHMAN LEFT ATRIAL APPENDAGE CLOSURE DEVICE REPORT
Date: 09/17/25
Primary Care Provider: Roopa Bolanos DO
History:
She has a complex medical history which includes includes psychogenic polydipsia and severe hyponatremia, hypothyroidism, medical noncompliance, PAF, syncope, SSS, prior Medtronic dual chamber PPM, Now PPM dependent,�PAULETTE (on CPAP), vertigo treated
with vestibular therapy in the past, symptomatic paroxysmal atrial fibrillation s/p PVI in February 2018 for symptomatic AF, chronic LE edema, orthopedic issues, gait instability, recurrent traumatic falls, HFpEF and high CHADSVASc = 4 and with
elevated HASBLED = 3 .
Watchman Team:
HARISH: Dr Hortensia Quarles M.D.
Transseptal amusement equipment operator: Dr Milan Edmond M.D.
Implanter: Dr Taar Conner M.D.
Procedure: Watchman left atrial appendage closure.
The patient was under general anesthesia.
A HARISH probe was placed.
Heparin was administered to goal ACT 300-400 seconds.
Transseptal puncture was previously performed By Dr Edmond. Dr Edmond positioned the sheath with pigtail catheter into the left atrial appendage and obtained angiogram of the left atrial appendage for sizing and positioning of the device.
Dr Conner positioned and deployed the Watchman device.
The pigtail catheter was removed from the access sheath. A 27 mm Watchman device was flushed and then placed into the watchman access sheath and advanced through the sheath. The Watchman was clamped into the sheath. The device was deployed into
the left atrial appendage.
The PASS criteria were met. The stability tug test was performed and passed. Angiography and transesophageal echocardiogram revealed no leaks nor jets. The position was confirmed on angiography and transesophageal echo and there were no
significant shoulders.
After meeting the PASS release criteria the device was released into the left atrial appendage.
The watchman access sheath was then removed through the transseptal into the IVC. A figure 8 suture closure was performed at the site of the femoral venous puncture and the sheath as it was removed.
Impression:
- Transseptal puncture and left atrial appendage angiogram by Dr Edmond
- Successful Deployment 27 mm WATCHMAN left atrial appendage closure device by Dr Conner.
- Ultrasound guidance for vascular access
Recommended anticoagulation strategy for this specific patient is:
Eliquis 5 mg BID for 3 months, then asa 81 mg daily if the 3-month transesophageal echo shows a well-seated device with no significant leak and no device related thrombus.
Transesophageal echocardiogram at 3 months post procedure will be used to assess for any device related thrombus, assess for any leaks, and aid in the decision making regarding altering anticoagulation/antiplatelet recommendations.
At post procedure HARISH leaks > 5mm are significant and require chronic full anticoagulation or consideration for leak closure.
Eula-device leaks between 3 and 5 mm may also carry an increased risk. These patients will need individualized risk assessment and discussion with Watchman team.
Leaks < 3 mm are generally considered non-significant.
With leak of any size suggestion is to check HARISH 12 mo out from implant.
While the overall risk of device related infection for Watchman device is very low, we recommend SBE prophylaxis with amoxicillin for the first 6 months after device implantation until the device is more completely endothelialized. After the first
6 months, the risk of infection associated with a device is further reduced and routine antibiotic prophylaxis is not mandatory but can be decided on an individual case basis.
We will arrange for an office visit with Sonja Cowart NP in 2 to 3 months, just prior to her planned transesophageal echo.
cc:
Primary Care Provider: Roopa Bolanos DO
[2025-09-17 09:07] LABS: ACT-LR - POC 308 Seconds (116-155)
[2025-09-17 09:28] LABS: ACT-LR - POC 297 Seconds (116-155)
[2025-09-17 09:51] LABS: ACT-LR - POC 321 Seconds (116-155)
--- NOTE | 2025-09-17 10:04 | WATCHMAN.MD ---
Watchman Implant
-
ELECTROPHYSIOLOGY/INTERVENTIONAL PROCEDURE REPORT
Date of Procedure: September 17, 2025
Assisting Physician: Milan Edmond MD
PROCEDURES:
1. Left atrial appendage occlusion device using 27 mm WATCHMAN FLX device
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
ACCESS: Right common femoral vein, 16Fr sheath, under US guidance using micropunture kit.
Ultrasound was utilized for vascular access. The right femoral vein was visualized under ultrasound, and the vessels was patent. An image was stored permanently in the patient's medical record. Under direct ultrasound guidance, an 8 Australian
sheaths was inserted into the right common femoral vein, using a micropuncture kit through a modified Seldinger technique.
HEMODYNAMICS : (mmHg)
LA Pressure: 14
PROCEDURE REPORT:
After informed consent and patient safety 'Timeout' the patient was intubated and sedated by the anesthesiology service. Under ultrasound guidance, the right femoral vein was accessed by Dr. Milan Edmond for transseptal puncture. Concomitant
transesophageal echocardiogram was performed by Dr. Bryant Edmond.
Baseline intracardiac ultrasound demonstrated no pericardial effusion and baseline HARISH images revealed a trace pericardial effusion.
This watchman was completed after Dr. Edmond finished the PVI portion. Please see details from his report in regards to PVI procedure and transseptal puncture.
The watchman access double curve sheath was advanced over 0.035' wire which was parked into left inferior PV and WAS was advanced into the left atrium. A 5 Australian pigtail catheter was placed into the left atrial appendage and an appendage gram was
performed using intravenous contrast dye demonstrating an anatomy that was suitable likely for a 27mm WATCHMAN FLX device.
After appropriately prepping the device, Dr. Tara Conner successfully deployed a 27 mm WATCHMAN FLX device. Device showed excellent positioning with no leaks post device deployment. 15 to 19 % compression was noted in the device after deployment.
A 'tug-test' was performed demonstrating stability of the device. Given PASS criteria were met, the device was then released successfully by Dr. Tara Conner
Post procedure, HARISH imaging demonstrated no new or worse pericardial effusion. Sheaths and catheters were removed from the left atrium and heparin was reversed using protamine. Catheters removed from the femoral veins with [id number] suture
applied. The patient tolerated the procedure well.
Closure Device: Figure of 8 suture
CONCLUSIONS
1. Successful deployment of 27 mm WATCHMAN FLX device under HARISH guidance.
RECOMMENDATIONS
1. Plan for Eliquis 5 mg twice daily for at least the next 3 months.
2. 3-month HARISH post procedure to assess stability of device and rule out any antonio-device leaks. If no issues noted on the 3-month HARISH post watchman placement such as a greater than 5 mm leak, plan would be to stop anticoagulation at that point and
continue daily baby aspirin lifelong.
3. Figure of 8 suture removal prior to discharge.
Tara Conner MD, [facility], [facility]
[2025-09-17] MEDS: ANESTHETIC LOZENGE 1 LOZENGE PO (11:15)
[2025-09-17] MEDS: NEURONTIN 400 MG PO ×3 (13:51→22:51)
--- NOTE | 2025-09-17 14:03 | CM ---
Chart reviewed. Patient is independent of ADLS, lives alone in a [address], 4[address]5 [place], ambulates with a RW. Patient current with [facility] Referral sent to resume services. Patient's son will be staying with the patient for a few days. Plan is
for the patient to return home with [facility]. CM to follow
[2025-09-17] MEDS: CARDIZEM CD 240 MG PO (14:52)
[2025-09-17] MEDS: CLARITIN 10 MG PO (14:57)
--- NOTE | 2025-09-17 15:08 | PTCARENOTE ---
Received pt about 1200 from [facility] into 2251. Pt is AAOx3 A/v paced on the monitor vss Rt groin site c/d/i. Figure of 8 suture removed about 1420. Call mancera within reach.
--- NOTE | 2025-09-17 15:12 | PTCARENOTE ---
Pt's HR appeared irreg on the monitor EKG done ST with 1st degree heart block. Santino Covarrubias notified and ordered stat dose Cardizem 240 PO. HR 80's bp 102/54. Pt remains on bedrest at this time.
--- NOTE | 2025-09-17 16:29 | PTCARENOTE ---
Figure of 8 sutures removed @ 1420 as ordered. dressing is c/d/i. Pt rhythm back and forth A Fib and paced rhythm Santino Covarrubias aware and asked to turn pacer mode off.
[2025-09-17] MEDS: FOLVITE 1 MG PO (18:26)
[2025-09-17] MEDS: ELIQUIS 5 MG PO (18:27)
[2025-09-17] MEDS: SINGULAIR 10 MG PO (18:27)
[2025-09-17] MEDS: FLOVENT 44 MCG INHALER 1 PUFF INH (19:39)
[2025-09-17] MEDS: BUSPAR 5 MG PO (20:26)
[2025-09-17] MEDS: BETAPACE 80 MG PO (20:26)
[2025-09-17] MEDS: PEPCID 40 MG PO (21:16)
[2025-09-17] MEDS: COLCHICINE 0.6 MG PO (22:51)
--- NOTE | 2025-09-17 23:50 | PTCARENOTE ---
Received patient at change of shift. V paced on the monitor, HR in the 80s. R groin CDI. Patient complained of burning in chest, EKG obtained and Pepcid administered. Patient now pain free. Call mancera within reach.
[2025-09-18] MEDS: MELATONIN 3 MG PO (00:12)
[2025-09-18 04:16] VITALS: BP 119/61
[2025-09-18] MEDS: SYNTHROID 88 MCG PO (04:37)
[2025-09-18 04:39] VITALS: BMI 32.7
[2025-09-18 04:49] LABS: Hematocrit 28.5 % (37.0-47.0); Hemoglobin 9.8 g/dL (12.0-16.0); Mean Corp Hgb Conc. 34.4 g/dL (33.0-37.0); Mean Corpuscular Volume 87.4 fL (81.0-99.0); Platelet Count 244 10^3/uL (130-400); Red Cell Dist. Width 16.4 % (11.5-14.5)
[2025-09-18 05:13] LABS: Blood Urea Nitrogen 21 mg/dl (7-17); Calcium 8.7 mg/dl (8.4-10.2); Carbon Dioxide 25 mmol/L (22-30); Chloride 99 mmol/L (98-107); Estimated Creatinine Clearance 84 ml/min; Glucose 114 mg/dl (70-99); Magnesium 2.2 mg/dl (1.6-2.3); Potassium 4.5 mmol/L (3.5-5.1); Sodium 126 mmol/L (135-145); eGFR > 60.00
[2025-09-18 07:16] VITALS: BP 121/73
[2025-09-18] MEDS: FLOVENT 44 MCG INHALER 1 PUFF INH (07:27)
--- NOTE | 2025-09-18 08:06 | PTCARENOTE ---
Assumed care of the pt @ 0700.Pt is AAOx3 A/V paced on the monitor VSS. Rt groin dressing c/d/i. Call mancera within reach.
[2025-09-18] MEDS: MIRALAX 17 GRAMS PO (08:45)
[2025-09-18] MEDS: CLARITIN 10 MG PO (08:46)
[2025-09-18] MEDS: BUSPAR 5 MG PO (08:46)
[2025-09-18] MEDS: PROTONIX 40 MG PO (08:46)
[2025-09-18] MEDS: BETAPACE 80 MG PO (08:46)
[2025-09-18] MEDS: NEURONTIN 400 MG PO (08:46)
[2025-09-18] MEDS: ELIQUIS 5 MG PO (08:46)
--- NOTE | 2025-09-18 09:18 | W.PN.CARDCBS ---
Addendum entered and electronically signed by Delfino Bar MD 09/18/25 09:40:
Patient seen and examined
Agree with RN DISCHARGE note and assessment
Agree with RN DISCHARGE plan
Exam:
Awake alert and oriented
Nonfocal neurologically
JVP 6
Cor regular
Paced on telemetry
No extremity edema
Remainder as per RN DISCHARGE note and assessment
IMPRESSION:
Recurrent symptomatic PAF
Prior PVI, 02/2018
S/P Redo PFA w/Watchman device implant, 09/17/25
SSS, s/p PPM, pacer dependant (2015)
Vertigo/vestibular disturbance
Gait instability w/falls
TIA
Beck's esophagus/GERD, prior GIB
Chronic diastolic HFpEF, 55-60%
Hypothyroid
Severe hyponatremia
chronic LE edema
PLAN:
Telemetry reviewed and groin sites reported stable
oob ambulating
resumed eliquis last evening- continue for 3 months then asa 81mg daily if HARISH shows device well seated/no leak/no thrombus
continue sotalol, diltiazem
followup at [facility] in 3 months, HARISH arranged in 3 months
SBE prophylaxis with amoxicillin for 6 mos post implant recommended
home today
Original Note:
Today's Communication / Plan
-
Continue eliquis
HARISH in 3 months
home today
Impression / Plan
-
PCP: Roopa Bolanos, DO
CDY: Bryant Edmond MD
80 y/o, presents with AFib, prior PVI 02/2018, SSS w/PPM implant 2015, now with recurrent symptomatic AFib on eliquis, complicated by vertigo/dizziness and vestibular disturbance resulting in recurrent falls, complicated by scalp hematoma. Also has a
prior GIB r/t NSAID, Beck's esophagus/GERD. [id number]=1, HAS-BLED=4.
Presented to EP lab, now s/p redo PFA with Watchman device implant.
IMPRESSION:
Recurrent symptomatic PAF
Prior PVI, 02/2018
S/P Redo PFA w/Watchman device implant, 09/17/25
SSS, s/p PPM, pacer dependant (2015)
Vertigo/vestibular disturbance
Gait instability w/falls
TIA
Beck's esophagus/GERD, prior GIB
Chronic diastolic HFpEF, 55-60%
Hypothyroid
Severe hyponatremia
chronic LE edema
PLAN:
Tele- SR w/1st deg AVB, A/AV paced
brief AF/AT post procedure
groin site stable
oob ambulating
resumed eliquis last evening- continue for 3 months then asa 81mg daily if HARISH shows device well seated/no leak/no thrombus
continue sotalol, diltiazem
followup at [facility] in 3 months, HARISH arranged in 3 months
SBE prophylaxis with amoxicillin for 6 mos post implant recommended
home today
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
Subjective
Date of Service: September 18, 2025
Denies cp/palps/dyspnea
oob ambulating
groin site without pain
Objective
Labs:
09/18/25 04:19
09/18/25 04:19
Labs
Hgb 9.8 g/dL (12.0-16.0) L 09/18/25 04:19
Hct 28.5 % (37.0-47.0) L 09/18/25 04:19
Plt Count 244 10^3/uL (130-400) 09/18/25 04:19
Sodium 126 mmol/L (135-145) L 09/18/25 04:19
Potassium 4.5 mmol/L (3.5-5.1) 09/18/25 04:19
BUN 21 mg/dl (7-17) H 09/18/25 04:19
Creatinine 0.6 mg/dL (0.6-1.0) 09/18/25 04:19
Glucose 114 mg/dl (70-99) H 09/18/25 04:19
Vital Signs and I&O:
Vital Signs
Temp Pulse Resp BP Pulse Ox
97.4 F 79 16 121/73 97
09/18/25 07:25 09/18/25 08:00 09/18/25 07:27 09/18/25 07:16 09/18/25 07:30
Vital Signs
Temp Pulse Resp BP Pulse Ox
97.4 F 79 16 121/73 97
09/18/25 07:25 09/18/25 08:00 09/18/25 07:27 09/18/25 07:16 09/18/25 07:30
Intake & Output
09/16/25 09/17/25 09/18/25 09/19/25
06:59 06:59 06:59 06:59
Intake Total 1040 / 1040
Output Total 900 / 900
Balance 140 / 140
Physical Exam
Physical Exam
AAOx3, MAEE 5/5
RRR S1 S2 no murmurs
CTA bilat, non labored
soft abd, + bs
right groin site without ht/bleeding, non tender
bilat extremities w/palpable distal pulses, no edema
--- NOTE | 2025-09-18 09:33 | W.DS.TRANS ---
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
-
Discharge Instructions:
Discharge Diagnosis/Procedures AFib, s/p ablation and watchman device implant
Diet Low Cholesterol
Driving Restrictions No driving for 24 hours
Others Tests Follow up HARISH has been scheduled for you at
[facility] on 12/28/[address] River. You will receive a call the
day before with arrival time.
Instructions:
Stand-Alone Forms: DC Instructions- Cath/EP Lab
Changes to Home Medications: No
Discharge Medications:
DC Medications w/original date entered in [employer]
Metamucil 3 gummy PO Q48H Constipation 04/20/24
acetaminophen 500 mg tablet (Tylenol Extra Strength) 500 mg PO Q8HPRN PRN mild pain 04/20/24
atorvastatin 10 mg tablet 10 mg PO Q48H High Cholesterol 04/20/24
carboxymethylcellulose sodium 0.5 % eye drops (Refresh Tears) 1 drp BOTH EYES Q1HPRN PRN dry eyes 04/20/24
colchicine 0.6 mg tablet 0.6 mg PO HS Gout 04/20/24
diltiazem HCl 240 mg capsule,extended release 24 hr 240 mg PO QPM Heart Disease/Condition 04/20/24
famotidine 40 mg tablet 40 mg PO HS Gastrointestinal Issue 04/20/24
fluticasone propionate 50 mcg/actuation nasal spray,suspension 2 spray intranasal HS Allergies 04/20/24
folic acid 1 mg tablet 1 mg PO QPM Supplement 04/20/24
gabapentin 400 mg capsule (Neurontin) 400 mg PO QID Neurological Condition 04/20/24
lemborexant 10 mg tablet (Dayvigo) 10 mg PO HS Sleep 04/20/24
levothyroxine 88 mcg tablet 88 mcg PO DAILY Thyroid 04/20/24
linaclotide 72 mcg capsule (Linzess) 72 mcg PO DAILY Constipation 04/20/24
mometasone 220 mcg/actuation(60 doses) breath activated powder inhaler (Asmanex Twisthaler) 2 inh inhalation HS Allergies 04/20/24
montelukast 10 mg tablet 10 mg PO QPM asthma 04/20/24
biotin 5,000 mcg chewable tablet 5,000 mcg PO QPM Supplement 04/06/25
buspirone 5 mg tablet 5 mg PO BID Mental Health/Anxiety 04/06/25
calcium carb-ergocalciferol (vit D2) 600 mg calcium-200 unit tablet 1 tab PO BID Supplement 04/06/25
melatonin 3 mg capsule 3 mg PO HSPRN PRN sleep 04/06/25
sotalol 80 mg tablet 80 mg PO BID Heart Disease/Condition 04/06/25
apixaban 5 mg tablet (Eliquis) 5 mg PO BID Blood Clot Prevention/Tx 07/05/25
loratadine 10 mg tablet (Claritin) 10 mg PO DAILY Allergies 07/05/25
ddmdetkxbdxl-vcyqaeqw-olvxbm tablet 1 tab PO QPM Supplement 07/05/25
mirabegron 25 mg tablet,extended release 24 hr 25 mg PO Q48H Urinary Issue 09/05/25
pantoprazole 40 mg tablet,delayed release 40 mg PO DAILY Gastrointestinal Issue 09/05/25
polyethylene glycol 3350 17 gram/dose oral powder (Miralax) 4 g PO DAILY Constipation 09/05/25
methotrexate sodium 15 mg tablet 15 mg PO WE Autoimmune Disorder 09/17/25
vit C 250 mg-vit E 90 mg-zinc 40 mg-copper 1 [id number]-idukvt capsule (PreserVision AREDS-2) 1 tab PO BID Supplement 09/17/25
Home Medication Changes
Pending Results: No
== END 2025-09-18 11:05 | disposition home health service (06) | DRG 317 ==
LOC: IVU 06:33
PROVIDERS: Internal Medicine Cardiovascular Disease; Internal Medicine Interventional Cardiology; Nurse Practitioner; ADMITTING PHYSICIAN Internal Medicine Cardiovascular Disease
PROC: 02K83ZZ Map Conduction Mechanism, Percutaneous Approach (ICD-10-PCS; 2025-09-17)
PROC: 5A2204Z Restoration of Cardiac Rhythm, Single (ICD-10-PCS; 2025-09-17)
PROC: B24BZZ4 Ultrasonography of Heart with Aorta, Transesophageal (ICD-10-PCS; 2025-09-17)
PROC: 02583ZF Destruction of Conduction Mechanism using Irreversible Electroporation, Percutaneous Approach (ICD-10-PCS; 2025-09-17)
PROC: 02L73DK Occlusion of Left Atrial Appendage with Intraluminal Device, Percutaneous Approach (ICD-10-PCS; 2025-09-17)
PROC: 4A023FZ Measurement of Cardiac Rhythm, Percutaneous Approach (ICD-10-PCS; 2025-09-17)
PROC: 4A0234Z Measurement of Cardiac Electrical Activity, Percutaneous Approach (ICD-10-PCS; 2025-09-17)
DX: I48.0 Paroxysmal atrial fibrillation (principal); Z00.6 Encounter for examination for normal comparison and control in clinical research program; I50.32 Chronic diastolic (congestive) heart failure; E87.1 Hypo-osmolality and hyponatremia; R29.6 Repeated falls; M06.9 Rheumatoid arthritis, unspecified; G62.9 Polyneuropathy, unspecified; D64.9 Anemia, unspecified; K21.9 Gastro-esophageal reflux disease without esophagitis; K22.70 Barrett's esophagus without dysplasia; I25.10 Atherosclerotic heart disease of native coronary artery without angina pectoris; I11.0 Hypertensive heart disease with heart failure; I49.5 Sick sinus syndrome; G47.33 Obstructive sleep apnea (adult) (pediatric); G47.00 Insomnia, unspecified; J45.20 Mild intermittent asthma, uncomplicated; J44.89 Other specified chronic obstructive pulmonary disease; E03.9 Hypothyroidism, unspecified; M10.9 Gout, unspecified; I89.0 Lymphedema, not elsewhere classified; I44.0 Atrioventricular block, first degree; I47.19 Other supraventricular tachycardia; M81.0 Age-related osteoporosis without current pathological fracture; M19.90 Unspecified osteoarthritis, unspecified site; I08.3 Combined rheumatic disorders of mitral, aortic and tricuspid valves; Z91.81 History of falling; Z95.0 Presence of cardiac pacemaker; Z86.73 Personal history of transient ischemic attack (TIA), and cerebral infarction without residual deficits; Z87.891 Personal history of nicotine dependence; Z79.01 Long term (current) use of anticoagulants
CPT/HCPCS: 33340; 80048; 83735; 85027; 85347; 93005; 93355; 93655; 93656; 93657; 94640; C1730; C1732; C1733; C1766; C1769; C1892; C1894; Q9967

== ENCOUNTER → 2025-10-17 12:07 | Outpatient (REF) | payer MEDICARE, BC, SELFPAY | LOC: HWRAD 12:07 | PROVIDERS: ATTENDING PHYSICIAN Specialist; FAMILY PHYSICIAN Family Medicine Geriatric Medicine | DX: N13.39 Other hydronephrosis (principal) | CPT/HCPCS: 74176 ==